=== PATIENT | male | born 1935 | race Caucasian/White ===

== ENCOUNTER 2020-07-14 16:35 | Inpatient (IN) | payer MEDICARE, SELFPAY ==
--- NOTE | 2020-07-14 | CT_ITS ---
EXAMINATION: CT ABDOMEN AND PELVIS WITH CONTRAST CLINICAL INFORMATION: Abdominal pain. Diarrhea. COMPARISON: None TECHNIQUE: Multidetector volumetric images were obtained from the superior aspect of the liver through the pubic symphysis following administration 85 mL of Omnipaque 350 intravenous contrast. Sagittal and coronal reformatted images were obtained on the technologist's workstation. Oral contrast: No This CT examination was performed using dose optimization techniques as appropriate, variously including the following: *Automated exposure control *Adjustment of mA and/or kV according to patient size (this includes techniques or standardized protocols for targeted exams where dose is matched to indication/reason for exam; i.e. extremities or head) *Use of iterative reconstruction technique DLP: 544 mGy-cm FINDINGS: LUNG BASES: There is atelectasis at both lung bases. There is no pleural effusion. There are calcifications of coronary arteries. There are calcifications of the aorta. LIVER, GALLBLADDER, AND BILIARY TREE: Liver is enlarged nodular and heterogeneous suggesting cirrhosis. There is dilatation of the right biliary radicles. These appear to be splayed around a mass in the central right liver measuring 10 cm it is isointense. MRI of the abdomen without and with contrast would be helpful for further assessment. The gallbladder is contracted. No calcified stone is seen in the gallbladder. PANCREAS: The pancreas is atrophic. SPLEEN: Unremarkable. Spleen measures 11 cm of length. ADRENAL GLANDS: Unremarkable. KIDNEYS AND URETERS: There are multiple bilateral renal cysts. Largest is an exophytic cyst at the midpole the right kidney measuring 4.5 cm. There is no renal or ureteral calculus. There is no hydronephrosis. BLADDER: Unremarkable. GASTROINTESTINAL TRACT: There is no acute abnormality. There is no bowel wall thickening /edema. There is no bowel obstruction. There is a moderate volume of stool in the colon. The appendix is normal . The small bowel loops are unremarkable. The stomach is normal. There is small hiatal hernia. MESENTERY: Large volume of abdominal ascites. No evidence of omental thickening or mesenteric mass. ABDOMINAL WALL: Small bilateral inguinal hernias. There is ascites in both of these inguinal hernias. There is no ventral wall hernia. LYMPH NODES: Normal. VASCULAR: There are vascular calcifications of the abdominal aorta and iliac arteries and of the splenic artery. There is no aneurysm of aorta. PELVIC VISCERA: Unremarkable. OSSEOUS STRUCTURES: Unremarkable. IMPRESSION: 1. Cirrhosis of liver. Suspect large mass in the central portion of the liver. Dynamic MRI imaging recommended for follow-up. 2. Large volume of abdominal ascites.
[2020-07-14 18:41] VITALS: BP 112/61; PULSE 94; RESP 18; TEMP 36.5; O2SAT 97; BMI 23.6
--- NOTE | 2020-07-14 18:59 | ED_ITS ---
HPI - Abdominal Pain General Chief Complaint: Abdominal Pain Stated Complaint: diarrhea Time Seen by Provider: 07/14/20 18:43 History of Present Illness HPI narrative: Patient is a 85-year-old male presents today with having abdominal pain, diarrhea. The diarrhea is brown in color. Patient denies noticing any blood. The pain is crampy diffuse nonspecific. Patient denies any radiation. No specific trigger. The symptom has been ongoing for about a week. No vomiting. No nausea. No chest pain or shortness of breath no diaphoresis. Patient claims he had had previous abdominal surgery as a young adult. Unsure is the specific type of surgery. No coughing or congestion or upper respiratory symptoms. No diaphoresis. No travel. No leg swelling. No flank pain. No history of the same. No recent antibiotics. No recent camping MD elicited complaint: abdominal pain Onset (ago): day(s) Pain Consistency: constant Location: diffuse Quality: cramping Migration to: no migration Relieving factors: nothing Related Data Allergies Allergy/AdvReac Type Severity Reaction Status Date / Time No Known Allergies Allergy Unverified 06/30/20 15:01 Review of Systems Review of Systems Yes all other systems are reviewed and are negative Eyes: Reports as per HPI Reports system reviewed and no additional complaints, except as documented Cardiovascular: Reports as per HPI and Reports no additional cardiovascular complaints Respiratory: Reports as per HPI, Reports no additional respiratory complaints and Reports no additional respiratory complaints Gastrointestinal: Reports as per HPI and Reports no additional gastrointestinal complaints Genitourinary: Reports no additional male genitourinary complaints Musculoskeletal: Reports no additional musculoskeletal complaints Skin/Breast: Reports system reviewed and no additional complaints, except as docu Reports system reviewed and no additional complaints, except as documented Psychiatric: Reports no additional psychiatric complaints Endocrine: Reports no additional endocrine complaints Physical Exam Vital Signs and I&O and Narrative: Vital Signs and I&O: Vital Signs Temp 97.9 F 07/14/20 19:42 Pulse 96 07/15/20 00:37 Resp 16 07/15/20 00:37 BP 141/69 H 07/15/20 00:37 Pulse Ox 96 07/15/20 00:37 Intake & Output 07/14/20 07/14/20 07/15/20 06:59 18:59 06:59 Intake Total 1000 / 1000 Balance 1000 / 1000 Weight 72.575 kg Intake: Intake, IV Amoun t 1000 / 1000 0.9 % Sodium C hloride 1,000 ml 1000 / 1000 @ 999 mls/hr I VCONT .Q1H1M [facility] Rx#:[id number] Body Mass Index 23.6 Const: General: cooperative Orientation/consciousness: oriented to person HENMT: Head: Yes normal to inspection General nose exam: Normal external nose present Face and sinus: Yes normal facial exam Eyes: General: appearance normal, both eyes and all related structures Neck: Other: no JVD trachea is midline. Neck: Yes normal visual inspection Chest: Chest palpation & inspection: normal inspection of the chest Resp: Effort & Inspection: normal respiratory effort Auscultation: clear to auscultation bilaterally Cardio: Jugular venous distension: no JVD Rate: regular rate Rhythm: regular rhythm GI: Inspection: Yes normal to inspection Palpation (GI): Soft to palpation, nontender, no guarding and not rigid Percussion: Yes normal to percussion Auscultation: normal bowel sounds : General: Yes no CVA tenderness Back/Spine/Pelvis: Back: no CVA tenderness Skin: General skin exam: no rashes or lesions noted Neuro: General: oriented to person Extrem: General: Yes normal to inspection Psych: Appearance: grossly normal Procedures Paracentesis Time Out Performed: Yes Indication: possible spontaneous bacterial peritonitis Procedure: therapeutic paracentesis Location: LLQ Bedside Ultrasound Used: no Preparation: sterile prep and drape Amount of fluid obtained (mL): 3,500 Fluid: bloody Post Procedure Exam: awake, alert and normal BP Patient Tolerated Procedure: well Complications: none MDM - Abdominal Pain MDM Narrative Medical decision making narrative: Patient's CT scan of the abdomen showed large amount of ascites. In addition there is a mass in the liver. Consistent with malignancy. Patient's LFTs all elevated. Discussed with patient wants workup to be done at the hospital. Case discussed with hospitalist service for admission. Paracentesis performed over 3.5 L of bloody fluid was drained. Symptomatic Iram patient feels improved. no complications. Patient's ascites fluid is being sent for analysis. Differential Diagnosis Differential diagnosis: Likely abdominal pain, aortic dissection, acute appendicitis, bowel perforation and calculus of kidney Lab Data Result diagrams: 07/14/20 19:47 07/14/20 19:47 Labs: Lab Results 07/14/20 07/14/20 07/14/20 Range/Units 19:47 19:47 19:47 WBC 8.7 (4.8-10.8) X10*3/uL RBC 4.33 L (4.60-5.80) X10*6/uL Hgb 12.4 L (14.0-18.0) g/dl Hct 37.8 L (42-52) % MCV 87.3 (80-98) fL MCH 28.6 (27.0-33.0) pg MCHC 32.8 (31.0-36.0) g/dl RDW 19.2 H (11.0-16.0) % Plt Count 404 H (160-400) X10*3/uL MPV 9.8 (9.4-12.4) fL Immature Gran % (Auto) 0.5 H (0.0-0.4) % Neut % (Auto) 78.6 H (45-73) % Lymph % (Auto) 11.1 L (20-40) % [place] % (Auto) 9.0 (2-11) % Eos % (Auto) 0.0 (0-4) % Baso % (Auto) 0.8 (0-2) % Neut # (Auto) 6.9 (2.0-8.3) X10*3/uL Lymph # (Auto) 1.0 L (1.2-4.9) X10*3/uL [place] # (Auto) 0.8 (0.1-1.2) X10*3/uL Eos # (Auto) 0.0 (0.0-0.4) X10*3/uL Baso # (Auto) 0.1 (0.0-0.2) X10*3/uL Abs Immat Gran (auto) 0.04 H (0.00-0.03) X10*3/uL Absolute Nucleated RBC 0.000 (0.0-0.012) X10*3/uL Nucleated RBC % (auto) 0.0 (0.0-0.2) /100WBC Hold Blue Top SEE NOTE Sodium 138 (135-145) mmol/L Potassium 4.9 (3.3-5.1) mmol/l Chloride 104 (96-108) mmol/L Carbon Dioxide 23 (22-29) mmol/L Anion Gap 16 (12-20) BUN 33 H (9-16) mg/dL Creatinine 1.42 H (0.5-1.4) mg/dL Estim Creat Clear Calc 39.4 Estimated GFR 48 Random Glucose 148 H (60-115) mg/dL Calcium 9.4 (8.4-10.2) mg/dL Total Bilirubin 2.6 H (0.0-1.0) mg/dL AST 152 H (5-37) U/L ALT 129 H (0-40) U/L Alkaline Phosphatase 786 H (39-117) U/L Total Protein 6.8 (6.5-8.0) g/dL Albumin 3.4 L (3.5-5.0) g/dL Urine Color Urine Appearance Urine pH (5.0-8.0) Ur Specific [place] (1.005-1.025) Urine Protein (NEG-TRACE) MG/DL Urine Glucose (UA) (NEG) MG/DL Urine Ketones (NEG) MG/DL Urine Blood (NEG) Urine Nitrite (NEG) Ur Leukocyte Esterase (NEG) 07/14/20 Range/Units 22:09 WBC (4.8-10.8) X10*3/uL RBC (4.60-5.80) X10*6/uL Hgb (14.0-18.0) g/dl Hct (42-52) % MCV (80-98) fL MCH (27.0-33.0) pg MCHC (31.0-36.0) g/dl RDW (11.0-16.0) % Plt Count (160-400) X10*3/uL MPV (9.4-12.4) fL Immature Gran % (Auto) (0.0-0.4) % Neut % (Auto) (45-73) % Lymph % (Auto) (20-40) % [place] % (Auto) (2-11) % Eos % (Auto) (0-4) % Baso % (Auto) (0-2) % Neut # (Auto) (2.0-8.3) X10*3/uL Lymph # (Auto) (1.2-4.9) X10*3/uL [place] # (Auto) (0.1-1.2) X10*3/uL Eos # (Auto) (0.0-0.4) X10*3/uL Baso # (Auto) (0.0-0.2) X10*3/uL Abs Immat Gran (auto) (0.00-0.03) X10*3/uL Absolute Nucleated RBC (0.0-0.012) X10*3/uL Nucleated RBC % (auto) (0.0-0.2) /100WBC Hold Blue Top Sodium (135-145) mmol/L Potassium (3.3-5.1) mmol/l Chloride (96-108) mmol/L Carbon Dioxide (22-29) mmol/L Anion Gap (12-20) BUN (9-16) mg/dL Creatinine (0.5-1.4) mg/dL Estim Creat Clear Calc Estimated GFR Random Glucose (60-115) mg/dL Calcium (8.4-10.2) mg/dL Total Bilirubin (0.0-1.0) mg/dL AST (5-37) U/L ALT (0-40) U/L Alkaline Phosphatase (39-117) U/L Total Protein (6.5-8.0) g/dL Albumin (3.5-5.0) g/dL Urine Color YELLOW Urine Appearance CLEAR Urine pH 5.0 (5.0-8.0) Ur Specific [place] 1.015 (1.005-1.025) Urine Protein NEG (NEG-TRACE) MG/DL Urine Glucose (UA) NEG (NEG) MG/DL Urine Ketones NEG (NEG) MG/DL Urine Blood NEG (NEG) Urine Nitrite NEG (NEG) Ur Leukocyte Esterase NEG (NEG) Discharge Plan Discharge Clinical Impression: Ascites Patient Disposition: Admitted As Inpatient [facility] Past Medical History Medical History Arthritis Cataract Diabetes HTN (hypertension) Hypercholesteremia Surgical History H/O hernia repair Social History Social History Alcohol intake: former Smoking Status: Never smoker Use of substances other than those prescribed or required for medical reasons: No Advance Directives: No Advance Directives Information Provided: Yes
[2020-07-14 19:42] VITALS: BP 142/60; PULSE 70; RESP 16; TEMP 36.6; O2SAT 99
[2020-07-14] MEDS: 0.9 % Sodium Chloride 1,000 ML 999 ML IVCONT (19:43)
[2020-07-14 19:52] LABS: MANUAL DIFF FLAG NO
[2020-07-14 19:55] LABS: Basophils Absolute Auto 0.1 X10*3/uL (0.0-0.2); Basophils Percent Auto 0.8 % (0-2); Hematocrit 37.8 % (42-52); Hemoglobin 12.4 g/dl (14.0-18.0); Imm Gran Abs Auto 0.04 X10*3/uL (0.00-0.03); Imm Gran Pct Auto 0.5 % (0.0-0.4); Lymphocytes Percent Auto 11.1 % (20-40); Mean Corpuscular HGB Conc 32.8 g/dl (31.0-36.0); Mean Corpuscular Hemoglobin 28.6 pg (27.0-33.0); Mean Corpuscular Volume 87.3 fL (80-98); Mean Platelet Volume 9.8 fL (9.4-12.4); Monocytes Absolute Auto 0.8 X10*3/uL (0.1-1.2); Neutrophils Absolute Auto 6.9 X10*3/uL (2.0-8.3); Neutrophils Percent Auto 78.6 % (45-73); Platelet Count 404 X10*3/uL (160-400); Red Blood Count 4.33 X10*6/uL (4.60-5.80); Red Cell Distribution Width 19.2 % (11.0-16.0); White Blood Count 8.7 X10*3/uL (4.8-10.8)
[2020-07-14] MEDS: ondansetron HCL 4 MG/2 ML VIAL IVPUSH (20:26)
[2020-07-14 20:27] LABS: Alanine Aminotransferase 129 U/L (0-40); Albumin Level 3.4 g/dL (3.5-5.0); Alkaline Phosphatase 786 U/L (39-117); Anion Gap 16 (12-20); Aspartate Amino Transferase 152 U/L (5-37); Bilirubin Total 2.6 mg/dL (0.0-1.0); Blood Urea Nitrogen 33 mg/dL (9-16); Calcium 9.4 mg/dL (8.4-10.2); Carbon Dioxide 23 mmol/L (22-29); Chloride 104 mmol/L (96-108); Creatinine Clr Calc Pharmacy 39.4; Estimated Glomerular Filt Rate 48; Glucose Random 148 mg/dL (60-115); Potassium 4.9 mmol/l (3.3-5.1); Sodium 138 mmol/L (135-145); Total Protein 6.8 g/dL (6.5-8.0)
[2020-07-14 20:29] VITALS: PULSE 70; O2SAT 96
[2020-07-14] MEDS: iohexoL 350 MG/ML 100 ML INFUS..BTL IV (21:16)
[2020-07-14 22:28] LABS: Glucose Urine UA NEG (NEG); Leukocyte Esterase Urine NEG (NEG); Nitrite Urine NEG (NEG); Specific Gravity - Urine 1.015 (1.005-1.025); Urine Blood NEG (NEG); Urine Ketones NEG (NEG); Urine Protein NEG (NEG-TRACE)
[2020-07-14 22:30] LABS: Appearance Urine CLEAR; Color Urine YELLOW
[2020-07-15] VITALS (13 sets, daily range): BP systolic 98–143; BP diastolic 39–79; PULSE 74–111; RESP 16–20; TEMP 36.3–36.8; O2SAT 94–98; BMI 49.4
--- NOTE | 2020-07-15 | MR_ITS ---
EXAMINATION: MR ABDOMEN WITHOUT AND WITH CONTRAST CLINICAL INFORMATION: HCC. COMPARISON: CT scan of the abdomen and pelvis dated 07/14/2020. TECHNIQUE: MR abdomen was performed without and with use of 7 mL intravenous Gadavist gadolinium contrast. Postcontrast images are performed in multiphase dynamic sequences. Imaging was performed in 3 planes. FINDINGS: Evaluation is limited due to extensive motion artifact. LIVER: Liver measures 17.4 cm longitudinally and demonstrates a lobulated nodular contour, consistent with liver cirrhosis. As seen on the CT scan, there is a large mass seen completely replacing segment 8 and extending into segment 5, measuring 10.6 x 9.5 x 11.6 cm in size and appearing heterogeneously isointense on T1-weighted and T2-weighted sequences with a T1 dark and T2 bright rim (series 3, image 17; series 6, image 13). Postcontrast, there is low level heterogeneous arterial phase predominantly peripheral enhancement of this mass with several central nodular areas of hypo-/nonenhancement. Some of the arterial phase enhancing regions demonstrate washout on delayed sequences, though evaluation overall is extremely limited due to extensive artifact. There is delayed noncentral rim enhancement of the entire mass. This mass splays the right and middle hepatic veins, which are attenuated and also causes extensive mass effect on the right portal vein. Evaluation of the right portal vein is limited due to extensive motion artifact. The right portal vein may be markedly attenuated due to extensive mass effect versus occluded (bland versus tumor thrombus). There is an additional subtle mass in hepatic segment 2, measuring 4.8 x 2.7 cm (series 8, image 54) with identical imaging characteristics as the large mass described above. There is adjacent third 0.8 cm mass in hepatic segment 2 (series 6, image 14), also demonstrating identical imaging characteristics. Liver parenchyma is heterogeneous in signal. There is large volume ascites in the abdomen and extending into the pelvis. GALLBLADDER, BILIARY TREE: Gallbladder is only partially distended. There is diffuse thickening and enhancement of the gallbladder wall, a nonspecific finding in the setting of liver disease. No definite filling defects within the gallbladder are noted to suspect gallstones. There is mild intrahepatic dilatation in the right lobe of the liver due to mass effect upon the right hepatic duct by the large central liver mass. There is also minimal intrahepatic ductal dilatation in hepatic segment 2 distal to the dominant segment 2 mass described above. Common bile duct is poorly visualized but does not appear to be dilated, measuring 0.6 cm in the pancreatic head. PANCREAS: Pancreas is poorly visualized due to adjacent bowel related motion artifact and marked parenchymal atrophy. There are 2 subtle T2 bright masses seen in the pancreas, one in the pancreatic body/tail junction (series 4, image 25), measuring 1.1 x 0.8 cm and the other in the pancreatic tail, measuring 1.6 x 1.4 cm. These masses are poorly characterized postcontrast but the overall sense is that there is no significant enhancement. There is no significant pancreatic ductal dilatation appreciated. SPLEEN: Normal size (9.7 cm long) and appearance. Splenic vein patent. ADRENAL GLANDS AND KIDNEYS: Adrenal glands normal. Kidneys bilaterally symmetric in size and function. No hydronephrosis or perinephric stranding. There are several bilateral T2 bright thin-walled renal masses, largest of which is an exophytic mid right renal 4.7 x 4.3 cm mass. Postcontrast, only some of these masses are included in the [id number] of the exam and show no enhancement and are consistent with cysts. BOWEL LOOPS: The bowel loops are centrally displaced by the large volume ascites and are otherwise unremarkable. LYMPHOVASCULAR STRUCTURES: Abdominal aorta normal in caliber. No periaortic collections. Small periportal varices are seen. No significant abdominal adenopathy. BONES: Within normal limits to the extent included. IMPRESSION: 1. Cirrhotic liver with evidence of portal venous hypertension as evidenced by large volume ascites and small periportal varices. There are 3 superimposed hepatic masses, largest of which is seen nearly completely replacing hepatic segment 8. In the setting of liver cirrhosis, the imaging characteristics of these masses are suspicious, though not entirely diagnostic for hepatocellular carcinoma. Diagnostic confidence is low given the suboptimal scan obtained. 2. There is nonvisualization of the right portal vein, at least in part related to attenuation by extrinsic mass effect by the large central hepatic mass. Thrombosis (bland versus tumor thrombus) of the right portal vein may also be possible. 3. Mild intrahepatic ductal dilatation in the right and left lobes of the liver due to mass effect by the liver masses on the central intrahepatic biliary tree. 4. Poorly characterized cystic masses in the pancreatic body and tail. 5. Multiple renal masses, most consistent with cysts.
--- NOTE | 2020-07-15 01:41 | P.HPIM_ITS ---
History of Present Illness Date of Service: 07/14/20 Chief Complaint: abdominal distension 85-year-old male with past medical history of diabetes and hypertension, presents to the hospital with complaints of swelling in the abdomen. He reports that he has noticed abdominal swelling for about a week now but was not too concerned, 2 days ago his daughter in-law noticed swelling in his abdomen asked him to come to the ED. Patient otherwise denies any headache, change in vision, no change in color of his skin, no abdominal pain, nausea vomiting. he does report approximately 20 lb weight loss but does not tell me in what duration. He reports that his weight loss most likely secondary to his insulin use. He has had some episodes of diarrhea. He has no lower extremity edema. No urinary symptoms. On initial arrival to the ED patient hemodynamically stable with no other abnormal vitals labs are significant for BUN of 33 with a creatinine of 1.42, total bili of 2.6 with a direct bili of 1.8, AST of 152, ALT of 129, alk phos son 186, lipase of [address] imaging of the abdomen and pelvis which showed cirrhosis of the liver, suspect large mass in the central portion of the liver, and large volume of abdominal ascites patient underwent diagnostic and therapeutic paracentesis in the ED and 3.5 L of fluid was drained. Past medical history: diabetes, hypertension, hyperlipidemia, BPH, chronic pain past surgical history: Hernia repair family history: denies social history: Comes from home, lives with his son and [id number], denies current use of alcohol tobacco or illicit drug Review of Systems Review of Systems: Yes all other systems are reviewed and are negative Neurologic: Reports system reviewed and no additional complaints, except as documented [facility] Medical History (Updated 07/15/20 @ 03:58 by Ant Castro MD) Arthritis Cataract Diabetes HTN (hypertension) Hypercholesteremia Surgical History H/O hernia repair Social History Household Members: Family Do you presently have visiting nurse or other home services: No Alcohol intake: former Smoking Status: Never smoker Use of substances other than those prescribed or required for medical reasons: No Have you been hit, kicked, punched, or otherwise hurt by someone within the past year? If so, by whom?: No Do you feel safe in your current relationship?: No Is there a partner from a previous relationship who is making you feel unsafe now?: No Are you made to feel afraid or neglected: No Advance Directives: No Advance Directives Information Provided: Yes Do you have thoughts of harming others: None Recently lost weight without trying: No Meds Allergies Allergy/AdvReac Type Severity Reaction Status Date / Time No Known Allergies Allergy Unverified 06/30/20 15:01 Home Medications Medication Instructions Recorded Confirmed Type amlodipine 1 tab PO DAILY 07/15/20 07/15/20 History atorvastatin 1 tab PO DAILY 07/15/20 07/15/20 History blood sugar diagnostic [Accu-Chek 07/15/20 07/15/20 History Guide test strips] dulaglutide [Trulicity] 0.5 ml SUBCUT QWEEK 07/15/20 07/15/20 History ibuprofen 1 tab PO Q6H PRN 07/15/20 07/15/20 History lancets [Accu-Chek Fastclix Lancet 07/15/20 07/15/20 History Drum] metformin 1 tab PO BID 07/15/20 07/15/20 History oxycodone-acetaminophen 1 - 2 tab PO Q4H PRN 07/15/20 07/15/20 History tamsulosin 1 cap PO BEDTIME 07/15/20 07/15/20 History Physical Exam Vital Signs and Narrative: Vital Signs: Last Vital Signs Temp 98.3 F 07/15/20 01:20 Pulse 103 H 07/15/20 01:20 Resp 16 07/15/20 01:20 BP 98/39 L 07/15/20 01:20 Pulse Ox 97 07/15/20 01:20 Body Mass Index 23.6 Const: General: cooperative and no acute distress Orientation/consciousness: patient oriented x3 Eyes: General: appearance normal, both eyes and all related structures Pupils: Equal, round and reactive pupils present Resp: Effort & Inspection: normal respiratory effort, able to speak in complete sentences and abnormal respiratory pattern Auscultation: clear to auscultation bilaterally Cardio: Rate: regular rate Rhythm: regular rhythm GI: Other: 3+ distension of abdomen, abdomen is hard, has not rebound, guarding, or tenderness Auscultation: normal bowel sounds Skin: General skin exam: no rashes or lesions noted Neuro: General: patient oriented x3 Cranial nerves: Yes Equal, round and reactive pupils present Cognition (Neuro): normal cognition Extrem: General: Yes normal to inspection and Yes no pedal edema Results Labs Labs: Laboratory Tests 07/14/20 07/14/20 07/14/20 19:47 19:47 19:47 WBC 8.7 RBC 4.33 L Hgb 12.4 L Hct 37.8 L MCV 87.3 MCH 28.6 MCHC 32.8 RDW 19.2 H Plt Count 404 H MPV 9.8 Immature Gran % (Auto) 0.5 H Neut % (Auto) 78.6 H Lymph % (Auto) 11.1 L [place] % (Auto) 9.0 Eos % (Auto) 0.0 Baso % (Auto) 0.8 Neut # (Auto) 6.9 Lymph # (Auto) 1.0 L [place] # (Auto) 0.8 Eos # (Auto) 0.0 Baso # (Auto) 0.1 Abs Immat Gran (auto) 0.04 H Absolute Nucleated RBC 0.000 Nucleated RBC % (auto) 0.0 Hold Blue Top SEE NOTE Sodium 138 Potassium 4.9 Chloride 104 Carbon Dioxide 23 Anion Gap 16 BUN 33 H Creatinine 1.42 H Estim Creat Clear Calc 39.4 Estimated GFR 48 Random Glucose 148 H Calcium 9.4 Total Bilirubin 2.6 H AST 152 H ALT 129 H Alkaline Phosphatase 786 H Total Protein 6.8 Albumin 3.4 L Urine Color Urine Appearance Urine pH Ur Specific [place] Urine Protein Urine Glucose (UA) Urine Ketones Urine Blood Urine Nitrite Ur Leukocyte Esterase 07/14/20 22:09 WBC RBC Hgb Hct MCV MCH MCHC RDW Plt Count MPV Immature Gran % (Auto) Neut % (Auto) Lymph % (Auto) [place] % (Auto) Eos % (Auto) Baso % (Auto) Neut # (Auto) Lymph # (Auto) [place] # (Auto) Eos # (Auto) Baso # (Auto) Abs Immat Gran (auto) Absolute Nucleated RBC Nucleated RBC % (auto) Hold Blue Top Sodium Potassium Chloride Carbon Dioxide Anion Gap BUN Creatinine Estim Creat Clear Calc Estimated GFR Random Glucose Calcium Total Bilirubin AST ALT Alkaline Phosphatase Total Protein Albumin Urine Color YELLOW Urine Appearance CLEAR Urine pH 5.0 Ur Specific [place] 1.015 Urine Protein NEG Urine Glucose (UA) NEG Urine Ketones NEG Urine Blood NEG Urine Nitrite NEG Ur Leukocyte Esterase NEG ECG Attestation: I personally reviewed and interpreted this ECG as follows: Assessment and Plan (1) Ascites: Status: Acute most likely secondary to liver cirrhosis patient reports heavy alcohol use about 20 years ago but has not drank much since, he has significant abdominal ascites, 3.5 L of fluid was drained in the ED, patient has no significant abdominal pain, CT abdomen showing ascites and concern for liver mass plan: - may need regular therapeutic paracentesis on discharge - will follow cytology and cell count (2) Liver mass: Status: Acute concerning for cancer patient has a history of hep C that he is aware of, although does report history of of heavy alcohol use more than 20 years ago will obtain CEA, CA 19-9, AFP, hepatitis AB and C pen will consult GI consult Hematology-Oncology for further workup (3) Liver cirrhosis: Status: Acute unclear etiology alcohol versus viral hepatitis versus due to fatty liver disease although patient unaware workup as above including hepatitis panel, AFP, CA 19 9, CEA GI consult (4) Acute kidney injury superimposed on CKD: Status: Acute unclear baseline has elevated BUN and creatinine patient denies any poor appetite or low p.o. in plan: - IV fluid - urine studies - will follow BMP (5) Hypercholesteremia: Status: Acute continues status (6) HTN (hypertension): Status: Acute stable contnue alodipine (7) Diabetes: Status: Acute will hold this form start low-dose sliding scale insulin diabetic diet
[2020-07-15 02:08] LABS: Glucose, Whole Blood 126 mg/dL (60-115)
[2020-07-15 02:13] LABS: INTERNATIONAL NORM RATIO 1.1 (0.9-1.1); Prothrombin Time 13.4 SEC (10.8-13.0)
--- NOTE | 2020-07-15 02:24 | PC.NURSE ---
3.5 L body fluids out from paracentesis by Dr. Howard, and sent it the lab for analysis. pt tolerated procedere well.
[2020-07-15 02:56] LABS: Bilirubin Direct 1.8 mg/dL (0.0-0.5); Lipase 16 U/L (8-78)
[2020-07-15] MEDS: 0.9 % Sodium Chloride 1,000 ML 100 ML IVCONT (03:16)
[2020-07-15] MEDS: 0.9 % Sodium Chloride Flush 3 ML SYRINGE 2 ML IVFLUSH ×4 (03:40→21:29)
[2020-07-15] MEDS: Enoxaparin Sodium 40 MG/0.4 ML SYRINGE SUBCUT (03:51)
[2020-07-15 08:15] LABS: Glucose, Whole Blood 175 mg/dL (60-115)
[2020-07-15] MEDS: Insulin Lispro 100 UNIT/ML 3 ML VIAL SUBCUT ×3 (08:37→21:26)
[2020-07-15] MEDS: Atorvastatin Calcium 20 MG TABLET PO (08:41)
[2020-07-15] MEDS: amLODIPine Besylate 5 MG TABLET PO (08:41)
[2020-07-15 08:42] LABS: MN% 55.2 %; PMN% 44.8 %; RBC Peritoneal Fluid 0.266 X10*6/uL; WBC Peritoneal Fluid 0.517 X10*3/uL
[2020-07-15 09:35] LABS: ~Hepatitis C Antibody Nonreactive (Nonreactive)
[2020-07-15 11:16] LABS: BF Shift QC OK YES; Lymphocyte Peritoneal Fl 21 %; Monocytes Peritoneal Fl 13 %; Neutrophils Peritoneal Fluid 64 %; Other Peritioneal Fl 2 %
[2020-07-15 11:17] LABS: HBS Num1 0.62 mIU/mL (0-7.99); HBc Num1 0.18 S/CO (0.00-0.79); HBsAGNum1 0.14 S/CO (0.00-0.99); Hepatitis B Core Antibody Nonreactive (Nonreactive); Hepatitis B Surface Antigen Negative (Negative); ~Hepatitis B Surface Antibody NONREACTIVE (Nonreactive)
[2020-07-15 12:10] LABS: Glucose, Whole Blood 201 mg/dL (60-115)
--- NOTE | 2020-07-15 12:59 | PM.HEMONCCN ---
Subjective - Subjective Chief complaint: DISTENSION OF ABDOMEN. ASCITES. LIVER MASS. Patient: new to practice Consult date: 07/15/20 Primary Care Provider: Nonstaff Physician HPI - Consult Narrative Narrative: This is a pleasant 85-year-old gentleman who presented to the hospital yesterday with abdominal distension. this started about a week ago. He denies any abdominal pain, nausea vomiting heartburn or indigestion. He did admit to having had diarrhea off and on. His appetite has not been that good. He has lost weight about 20 lb in all. He was noted to have an elevated LFTs: Bili 2.6, AP 186 /AST 152/ALT 129. 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 He had a CT scan of the abdomen which revealed: A large mass, 10 cm in the central liver, ascites and cirrhosis. He had 3.5 L of fluid drained from the abdomen. He is feeling more comfortable now. Review of Systems - Constitutional Reports fatigue - ENT Reports system reviewed and no additional complaints, except as documented - Gastrointestinal Reports bloating, Reports change in bowel habits, Reports change in stools, Reports feeling full early, Reports diarrhea - Neurologic Reports system reviewed and no additional complaints, except as documented PMFSH Medical History: Medical History (Last Reviewed 07/19/20 @ 15:26 by Marie Lugo MD) Arthritis Cataract Diabetes HTN (hypertension) Hypercholesteremia Liver mass Patient : No Surgical History: Surgical History (Last Reviewed 07/15/20 @ 03:51 by Ant Castro MD) H/O hernia repair Smoking status: Never smoker Home Medications and Allergies Current Medications: Current Medications Generic Name Dose Route Start Last Admin Trade Name Freq PRN Reason Stop Dose Admin Acetaminophen 650 mg 07/15/20 02:39 Acetaminophen 650 Mg Supp.Rect [place] Q6H PRN Pain, Mild (Pain Scale 1-3) Amlodipine Besylate 5 mg 07/15/20 09:00 07/15/20 08:41 Amlodipine Besylate 5 Mg Tablet PO 5 mg DAILY NICKY Administration Protocol Atorvastatin Calcium 20 mg 07/15/20 09:00 07/15/20 08:41 Atorvastatin Calcium 20 Mg Tablet PO 20 mg DAILY NICKY Administration Enoxaparin Sodium 40 mg 07/15/20 03:00 07/15/20 03:51 Enoxaparin Sodium 40 Mg/0.4 Ml Syringe SUBCUT 40 mg Q24H NICKY Administration Ibuprofen 600 mg 07/15/20 02:39 Ibuprofen 600 Mg Tablet PO Q6H PRN pain Insulin Human Lispro 0 unit 07/15/20 07:30 07/15/20 12:08 Insulin Lispro 100 Unit/Ml 3 Ml Vial SUBCUT 4 unit QIDACHS [facility] Administration Protocol Levofloxacin 500 mg 07/15/20 12:45 Levofloxacin 500 Mg Tablet PO Q24H [facility] Magnesium Hydroxide 30 ml 07/15/20 02:39 Milk Of Magnesia 30 Ml Oral.Susp PO DAILY PRN Constipation Ondansetron HCl 4 mg 07/15/20 02:39 Ondansetron Hcl 4 Mg/2 Ml Vial IVPUSH Q8H PRN Nausea and Vomiting Sodium Chloride 2 ml 07/15/20 02:39 07/15/20 08:39 0.9 % Sodium Chloride Flush 3 Ml Syringe IVFLUSH 2 ml QSHIFT [facility] Administration Tamsulosin HCl 0.4 mg 07/16/20 21:00 Tamsulosin Hcl 0.4 Mg Capsule PO BEDTIME [facility] Home Medications Medication Instructions Recorded Confirmed Type Accu-Chek Guide test strips 07/15/20 07/15/20 History Trulicity 0.5 ml SUBCUT QWEEK 07/15/20 07/15/20 History amlodipine 1 tab PO DAILY 07/15/20 07/15/20 History atorvastatin 1 tab PO DAILY 07/15/20 07/15/20 History lancets [Accu-Chek Fastclix Lancet 07/15/20 07/15/20 History Drum] metformin 1 tab PO BID 07/15/20 07/15/20 History oxycodone-acetaminophen 1 - 2 tab PO Q4H PRN 07/15/20 07/15/20 History tamsulosin 1 cap PO BEDTIME 07/15/20 07/15/20 History Allergies Allergy/AdvReac Type Severity Reaction Status Date / Time No Known Allergies Allergy Unverified 06/30/20 15:01 Physical Exam Vital signs: Vital Signs Temp 97.7 F 07/15/20 12:02 Pulse 74 07/15/20 12:02 Resp 19 07/15/20 12:02 BP 116/61 07/15/20 12:02 Pulse Ox 95 07/15/20 12:02 Intake & Output 07/14/20 07/15/20 07/15/20 18:59 06:59 18:59 Intake Total 1000 / 1000 721.667 / 721.667 Output Total Balance 999 / 999 721.667 / 721.667 Urine Output (Average ml/kg/hr) 0.00 0.00 Intake: Intake, IV Amount 1000 / 1000 721.667 / 721.667 0.9 % Sodium Chloride 1,000 ml 1000 / 1000 721.667 / 721.667 @ 100 mls/hr IVCONT .Q10H [facility] Rx#:[id number] Output: Output, Urine Amount Other: Urine Bathroom Urine Color Yellow Stool Bathroom Stool Color Brown Stool Consistency Liquid Weight 72.575 kg 152 kg Weight 152 kg - Constitutional Present: no acute distress - Routine HEENT Exam Head: Present: normal inspection - Routine Neck Exam Present: supple - Routine Cardiovascular Exam Cardiovascular: Present: RRR, S1, S2 - Routine Abdominal Exam Present: diminished bowel sounds, distended, firm, nontender - Routine Skin Exam Present: intact - Routine Psychiatric Exam Present: depressed Hem/Onc Consult Result - Labs CBC & Chem 7: 07/16/20 06:55 07/16/20 06:55 Labs: Short CBC 07/14/20 Range/Units 19:47 WBC 8.7 (4.8-10.8) X10*3/uL Hgb 12.4 L (14.0-18.0) g/dl Hct 37.8 L (42-52) % Plt Count 404 H (160-400) X10*3/uL BMP 07/14/20 19:47 Sodium 138 Potassium 4.9 Chloride 104 Carbon Dioxide 23 BUN 33 H Creatinine 1.42 H Calcium 9.4 Liver Function 07/14/20 Range/Units 19:47 Total Bilirubin 2.6 H (0.0-1.0) mg/dL Direct Bilirubin 1.8 H (0.0-0.5) mg/dL AST 152 H (5-37) U/L ALT 129 H (0-40) U/L Alkaline Phosphatase 786 H (39-117) U/L Albumin 3.4 L (3.5-5.0) g/dL Urine 07/14/20 Range/Units 22:09 Urine Color YELLOW Urine Appearance CLEAR Urine pH 5.0 (5.0-8.0) Ur Specific [place] 1.015 (1.005-1.025) Urine Protein NEG (NEG-TRACE) MG/DL Urine Glucose (UA) NEG (NEG) MG/DL Assessment and Plan (1) Liver mass Status: Acute This is a pleasant 85-year-old gentleman, who presented last evening with abdominal distension. He was noted to have a large liver mass, and ascites. He had a paracentesis done with removal of 3.5 L of fluid in the emergency room. Results from cytology are pending. 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 Differential diagnosis includes: Metastatic cancer from another primary, could be a GI. alpha-fetoprotein is pending. PLAN: I would recommend proceeding with an MRI of the liver with contrast for further delineation. that may give us an answer and confirm if this is HCC, without the need for biopsy. I would also check other tumor markers. Further plan will be made in the light of the above. He may need to be referred to a liver center, for further management. thank you for this consult, cc: Dr. Akira Burks. (2) Liver mass Status: Acute
[2020-07-15] MEDS: levoFLOXacin 500 MG TABLET PO (13:49)
[2020-07-15 16:17] LABS: Creatinine Urine 163.41 mg/dL
[2020-07-15 16:35] LABS: Glucose, Whole Blood 145 mg/dL (60-115)
[2020-07-15 21:39] LABS: Glucose, Whole Blood 179 mg/dL (60-115)
[2020-07-16] VITALS (7 sets, daily range): BP systolic 103–129; BP diastolic 52–69; PULSE 72–94; RESP 18–19; TEMP 36.2–37.1; O2SAT 96–98; BMI 51.1
[2020-07-16] MEDS: Enoxaparin Sodium 40 MG/0.4 ML SYRINGE SUBCUT (02:27)
[2020-07-16 07:08] LABS: MANUAL DIFF FLAG NO
[2020-07-16 07:17] LABS: Basophils Absolute Auto 0.1 X10*3/uL (0.0-0.2); Basophils Percent Auto 0.9 % (0-2); Hematocrit 32.5 % (42-52); Imm Gran Abs Auto 0.02 X10*3/uL (0.00-0.03); Imm Gran Pct Auto 0.3 % (0.0-0.4); Lymphocytes Absolute Auto 0.8 X10*3/uL (1.2-4.9); Lymphocytes Percent Auto 12.2 % (20-40); Mean Corpuscular HGB Conc 33.8 g/dl (31.0-36.0); Mean Corpuscular Hemoglobin 28.7 pg (27.0-33.0); Mean Corpuscular Volume 84.9 fL (80-98); Monocytes Absolute Auto 0.8 X10*3/uL (0.1-1.2); Monocytes Percent Auto 12.5 % (2-11); Neutrophils Absolute Auto 4.7 X10*3/uL (2.0-8.3); Neutrophils Percent Auto 74.1 % (45-73); Platelet Count 296 X10*3/uL (160-400); Red Blood Count 3.83 X10*6/uL (4.60-5.80); Red Cell Distribution Width 18.6 % (11.0-16.0); White Blood Count 6.3 X10*3/uL (4.8-10.8)
[2020-07-16 08:07] LABS: Anion Gap 12 (12-20); Blood Urea Nitrogen 28 mg/dL (9-16); Carbon Dioxide 21 mmol/L (22-29); Chloride 106 mmol/L (96-108); Creatinine Clr Calc Pharmacy 79.3; Estimated Glomerular Filt Rate > 60; Glucose Fasting 109 mg/dL (60-99); Sodium 135 mmol/L (135-145)
[2020-07-16 08:08] LABS: Anion Gap 13 (12-20); Blood Urea Nitrogen 28 mg/dL (9-16); Carbon Dioxide 21 mmol/L (22-29); Chloride 106 mmol/L (96-108); Creatinine Clr Calc Pharmacy 77.8; Estimated Glomerular Filt Rate > 60; Glucose Random 109 mg/dL (60-115); Sodium 136 mmol/L (135-145)
[2020-07-16 08:11] LABS: Glucose, Whole Blood 105 mg/dL (60-115)
[2020-07-16] MEDS: 0.9 % Sodium Chloride Flush 3 ML SYRINGE 2 ML IVFLUSH (08:14)
[2020-07-16] MEDS: Atorvastatin Calcium 20 MG TABLET PO (08:14)
[2020-07-16] MEDS: amLODIPine Besylate 5 MG TABLET PO (08:14)
[2020-07-16 08:17] LABS: Calcium 8.1 mg/dL (8.4-10.2)
--- NOTE | 2020-07-16 10:01 | P.DS_ITS ---
DS: Providers Provider Date of admission: 07/15/20 00:37 Primary care physician: Nonstaff Physician Consults: 07/15/20 02:39 Consult to Hematology / Oncology Routine Consulting Provider: Marie Lugo Reason for consultation: liver mass. Has provider been notified: No Consult to Physician Routine Consulting Provider: Lloyd Burks Reason for consultation: lives cirrhosis, ascietes, mass Has provider been notified: No DS: Diagnosis Discharge Diagnosis (1) Liver mass: Status: Acute DS: Summary Hospital Course Hospital Course: patient was admitted for symptomatic ascites. There was no known history of liver cirrhosis prior to this. Imaging revealed liver cirrhosis with large hepatic mass. Paracentesis showed PMNs greater than 250, g stain and culture were negative. Patient was started on Levaquin and will continue as outpatient, duration ultimately due to be decided by GI. Viral hepatitis screen was negative, most likely underlying causes was AMAYA. For his hepatic mass he was seen by oncology recommended MRI which was suspicious for hepatocellular carcinoma although not entirely diagnostic. Alpha fetoprotein is pending. Patient is feeling better will be discharged home. He will follow-up with O ncology and GI as outpatient Time Spent with Patient Time attestation: Total time spent providing and/or coordinating discharge services: Physical Exam Vital Signs and I&O and Narrative: Vital Signs and I&O: Vital Signs Temp 97.1 F 07/16/20 08:18 Pulse 94 07/16/20 08:18 Resp 19 07/16/20 08:18 BP 117/59 L 07/16/20 08:18 Pulse Ox 97 07/16/20 08:18 Intake & Output 07/15/20 07/16/20 07/16/20 18:59 06:59 18:59 Intake Total 961.667 / 1141.667 180 / 1141.667 Output Total Balance 961.667 / 1130.667 169 / 1130.667 Urine Output (Aver age ml/kg/hr) 0.01 Weight 152 kg 157 kg Intake: Intake, Oral [place] unt 240 / 420 180 / 420 Intake, IV Amoun t 721.667 / 721.667 0.9 % Sodium C hloride 1,000 ml 721.667 / 721.667 @ 100 mls/hr I VCONT .Q10H NICKY Rx#:[id number] Output: Output, Urine Am ount Other: Meal Refused No No Breakfast % Eate n 100% Lunch % Eaten 100% Dinner % Eaten 100% Number of Incont inent Voids 5 Number of Unmeas ured Voids 3 Stool Bathroom Stool Color Brown Stool Consistenc y Liquid Body Mass Index 51.1 HENMT: Other: hard of hearing Resp: Auscultation: clear to auscultation bilaterally Cardio: Heart sounds: S1 normal heart sound present and S2 normal heart sound present GI: Other: distended but soft, nontender DS: Data Data Completed and Pending Pending studies at discharge: Pending at discharge 07/15/20 09:33 Cytology [PTH] Routine Labs on day of discharge: Labs from last 24 hours 07/16/20 07/16/20 07/16/20 08:06 06:55 06:55 WBC 6.3 RBC 3.83 L Hgb 11.0 L Hct 32.5 L MCV 84.9 MCH 28.7 MCHC 33.8 RDW 18.6 H Plt Count 296 D MPV 10.0 Immature Gran % (Auto) 0.3 Neut % (Auto) 74.1 H Lymph % (Auto) 12.2 L [place] % (Auto) 12.5 H Eos % (Auto) 0.0 Baso % (Auto) 0.9 Neut # (Auto) 4.7 Lymph # (Auto) 0.8 L [place] # (Auto) 0.8 Eos # (Auto) 0.0 Baso # (Auto) 0.1 Abs Immat Gran (auto) 0.02 Absolute Nucleated RBC 0.000 Nucleated RBC % (auto) 0.0 Sodium 135 Potassium 4.0 Chloride 106 Carbon Dioxide 21 L Anion Gap 12 BUN 28 H Creatinine 1.05 Estim Creat Clear Calc 79.3 Estimated GFR > 60 POC Glucose 105 Random Glucose Fasting Glucose 109 H Calcium 8.1 L Ur Random Sodium Urine Creatinine Peritoneal WBC Peritoneal RBC Periton Neutrophils Periton Lymphocytes Peritoneal Monocytes Peritoneal Other Cells Peritoneal Albumin Hep Bs Antigen Hep Bs Antibody Hep B Core Total Ab Hepatitis C Ab (EIA) 07/16/20 07/15/20 07/15/20 06:55 21:20 16:17 WBC RBC Hgb Hct MCV MCH MCHC RDW Plt Count MPV Immature Gran % (Auto) Neut % (Auto) Lymph % (Auto) [place] % (Auto) Eos % (Auto) Baso % (Auto) Neut # (Auto) Lymph # (Auto) [place] # (Auto) Eos # (Auto) Baso # (Auto) Abs Immat Gran (auto) Absolute Nucleated RBC Nucleated RBC % (auto) Sodium 136 Potassium 4.0 Chloride 106 Carbon Dioxide 21 L Anion Gap 13 BUN 28 H Creatinine 1.07 Estim Creat Clear Calc 77.8 Estimated GFR > 60 POC Glucose 179 H 145 H Random Glucose 109 Fasting Glucose Calcium 8.0 L Ur Random Sodium Urine Creatinine Peritoneal WBC Peritoneal RBC Periton Neutrophils Periton Lymphocytes Peritoneal Monocytes Peritoneal Other Cells Peritoneal Albumin Hep Bs Antigen Hep Bs Antibody Hep B Core Total Ab Hepatitis C Ab (EIA) 07/15/20 07/15/20 07/15/20 15:35 11:59 03:16 WBC RBC Hgb Hct MCV MCH MCHC RDW Plt Count MPV Immature Gran % (Auto) Neut % (Auto) Lymph % (Auto) [place] % (Auto) Eos % (Auto) Baso % (Auto) Neut # (Auto) Lymph # (Auto) [place] # (Auto) Eos # (Auto) Baso # (Auto) Abs Immat Gran (auto) Absolute Nucleated RBC Nucleated RBC % (auto) Sodium Potassium Chloride Carbon Dioxide Anion Gap BUN Creatinine Estim Creat Clear Calc Estimated GFR POC Glucose 201 H Random Glucose Fasting Glucose Calcium Ur Random Sodium 27.0 Urine Creatinine 163.41 Peritoneal WBC Peritoneal RBC Periton Neutrophils Periton Lymphocytes Peritoneal Monocytes Peritoneal Other Cells Peritoneal Albumin Hep Bs Antigen Negative Hep Bs Antibody NONREACTIVE Hep B Core Total Ab Nonreactive Hepatitis C Ab (EIA) Nonreactive 07/15/20 07/15/20 02:11 02:11 WBC RBC Hgb Hct MCV MCH MCHC RDW Plt Count MPV Immature Gran % (Auto) Neut % (Auto) Lymph % (Auto) [place] % (Auto) Eos % (Auto) Baso % (Auto) Neut # (Auto) Lymph # (Auto) [place] # (Auto) Eos # (Auto) Baso # (Auto) Abs Immat Gran (auto) Absolute Nucleated RBC Nucleated RBC % (auto) Sodium Potassium Chloride Carbon Dioxide Anion Gap BUN Creatinine Estim Creat Clear Calc Estimated GFR POC Glucose Random Glucose Fasting Glucose Calcium Ur Random Sodium Urine Creatinine Peritoneal WBC 0.517 Peritoneal RBC 0.266 Periton Neutrophils 64 Periton Lymphocytes 21 Peritoneal Monocytes 13 Peritoneal Other Cells 2 Peritoneal Albumin 1.2 GM/DL Hep Bs Antigen Hep Bs Antibody Hep B Core Total Ab Hepatitis C Ab (EIA) Discharge Plan Discharge Patient Disposition: Home, Self-Care Referrals: Physician,Nonstaff [Primary Care Provider] - Marie Lugo MD [Physician] - 1 Week (hcc) Lloyd Burks [Physician] - 1 Week (liver cirrhosis (suspected AMAYA) with HCC, ascitic fluid with PMN>250, culture and gram stain negative) Discharge Medications: New levofloxacin 500 mg Tablet 500 mg PO Q24H Qty: 5 RF: 0 Continued atorvastatin 20 mg tablet 1 tab PO DAILY RF: 0 (DME) Accu-Chek Guide test strips Strip 1 strip MISCELLANEOUS TID RF: 0 amlodipine 5 mg tablet 1 tab PO DAILY RF: 0 oxycodone-acetaminophen 5-325 mg tablet 1 - 2 tab PO Q4H PRN (Reason: pain) RF: 0 (DME) lancets [Accu-Chek Fastclix Lancet Drum] Misc 1 ea topical BID RF: 0 tamsulosin 0.4 mg capsule 1 cap PO BEDTIME RF: 0 metformin 1,000 mg tablet 1 tab PO BID RF: 0 Trulicity 1.5 mg/0.5 mL pen injector 0.5 ml subcut QWEEK RF: 0 Discontinued ibuprofen 600 mg tablet 1 tab PO Q6H PRN (Reason: pain) RF: 0 Discharge Orders: Discharge Order (Routine); Ordered 07/16/20 Ordered By: Yusuf Purdy Activity on Discharge: As tolerated Patient Instructions: Enoxaparin (By injection) Visit Report Forms: Patient Portal Discharge page Care Plan Goals: manage liver masses Health Concerns: liver masses Plan of Treatment: 5 days levaquin follow up with gi and oncology
--- NOTE | 2020-07-16 11:17 | MHC.CM.PN ---
PATIENT DISCHARGED PRIOR TO CASE MANAGEMENT MEETING WITH PATIENT.
--- NOTE | 2020-07-16 11:42 | MHC.CM.PN ---
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 CALL TO DAUGHTER IN LAW, . IMM VERBALLY DELIVERED. FAMILY TO BE IN TO TRANSPORT PATIENT. RN AWARE OF PLAN. IMM 07/16 IN CHART
[2020-07-16] MEDS: Insulin Lispro 100 UNIT/ML 3 ML VIAL SUBCUT (12:08)
[2020-07-16] MEDS: levoFLOXacin 500 MG TABLET PO (12:09)
[2020-07-16 12:28] LABS: Glucose, Whole Blood 231 mg/dL (60-115)
--- NOTE | 2020-07-16 12:53 | P.CNGI_ITS ---
History of Present Illness Data of Consult Service Date: 07/16/20 Requesting physician: Yusuf Purdy Primary Care Provider: Senthil Cardona MD HPI Reason for consult: Cirrhosis with recent onset ascites 85-year-old male with history of diabetes and hypertension, seen at [facility] ED on 07/14/20 with abdominal distension for the past 3-4 weeks. He was not too concerned. His daughter in-law noticed abdominal swelling and asked him to come to the ED. Patient admits to unintentional wt loss of 22 lbs over the past several months. He reports that his weight loss is likely secondary to his insulin use. He denies any fever, jaundice, nausea or vomiting. He admits to intermittent non-bloody diarrhea. He denies noting lower extremity edema (1+ pitting edema is present on PE). Labs in ED were significant for BUN of 33 with a creatinine of 1.42, TB of 2.6 with a DB of 1.8, AST of 152, ALT of 129, alk phos son 186, lipase of [address] scan showed cirrhosis of the liver, suspect large mass in the central portion of the liver, and large volume of abdominal ascites Patient underwent diagnostic and therapeutic paracentesis in the ED with removal of 3.5 L of fluid. Ascitic fluid analysis confirmed presence of SBP and patient was started on antibiotics. SAAG ratio was 2.2 consistent with ascites due to portal hypertension. Patient was admitted for further management. Patient denies past history of jaundice, hepatitis or liver disease. He notes he was started on weekly insulin (Trulicity) ? due to elevated LFTs. An abdominal MRI was performed today and results as noted below. CEA was normal, AFP and CA 19-9 are still pending. Review of Systems Constitutional: Constitutional: Denies fever(s) and Reports weight loss (wt loss of 22 lbs over the past several months) ENT: Denies Normal hearing present (Hard of hearing) Cardiovascular: Cardiovascular: Denies chest pain and Denies dyspnea Respiratory: Respiratory: Denies chest congestion, Reports cough ( in termittent cough) and Denies dyspnea Gastrointestinal: Gastrointestinal: Reports bloating, Reports change in bowel habits and Reports diarrhea Neurologic: Reports system reviewed and no additional complaints, except as documented and Denies Normal hearing present (Hard of hearing) Psychiatric: Psychiatric: Reports no additional psychiatric complaints PMFSH Past Medical History Medical History Arthritis Cataract Diabetes HTN (hypertension) Hypercholesteremia Liver mass Family History Pertinent family history: patient is and lives with his son and [id number]. He has 4 sons. Family history: reviewed and not pertinent ( patient denies known family history of colon polyps, colon cancer or GI malignancy.Dad at age 45 with alcohol related liver disease.) Surgical History Surgical History (Updated 07/15/20 @ 13:09 by Marie Lugo MD) H/O hernia repair Social History Social History (Updated 07/16/20 @ 14:23 by Shelia Sam MD) Household Members: Family Do you presently have visiting nurse or other home services: No Alcohol intake: former Smoking Status: Never smoker Use of substances other than those prescribed or required for medical reasons: No Currently Displaying Signs/Symptoms of Drug Intoxication Withdrawal: No Have you been hit, kicked, punched, or otherwise hurt by someone within the past year? If so, by whom?: No Do you feel safe in your current relationship?: No Is there a partner from a previous relationship who is making you feel unsafe now?: No Are you made to feel afraid or neglected: No Advance Directives: No Advance Directives Information Provided: Yes Do you have thoughts of harming others: None Do you have a plan to hurt others: No Plan Recently lost weight without trying: No Current occupational status: previously employed Current occupation: worked in a [employer] Allergies Allergy/AdvReac Type Severity Reaction Status Date / Time No Known Allergies Allergy Unverified 06/30/20 15:01 Home Medications Medication Instructions Recorded Confirmed Type Accu-Chek Guide test strips 07/15/20 07/15/20 History Trulicity 0.5 ml SUBCUT QWEEK 07/15/20 07/15/20 History amlodipine 1 tab PO DAILY 07/15/20 07/15/20 History atorvastatin 1 tab PO DAILY 07/15/20 07/15/20 History lancets [Accu-Chek Fastclix Lancet 07/15/20 07/15/20 History Drum] metformin 1 tab PO BID 07/15/20 07/15/20 History oxycodone-acetaminophen 1 - 2 tab PO Q4H PRN 07/15/20 07/15/20 History tamsulosin 1 cap PO BEDTIME 07/15/20 07/15/20 History Physical Exam Vital Signs and I&O and Narrative: Vital Signs and I&O: Vital Signs Temp 98.7 F 07/16/20 11:46 Pulse 83 07/16/20 11:46 Resp 18 07/16/20 11:46 BP 103/52 L 07/16/20 11:46 Pulse Ox 97 07/16/20 11:46 Intake & Output 07/15/20 07/16/20 07/16/20 18:59 06:59 18:59 Intake Total 961.667 / 1141.667 180 / 1141.667 Output Total Balance 961.667 / 1130.667 169 / 1130.667 Urine Output (Aver age ml/kg/hr) 0.01 Weight 335 lb 1.642 oz 346 lb 2.012 oz Intake: Intake, Oral Fallon unt 240 / 420 180 / 420 Intake, IV Amoun t 721.667 / 721.667 0.9 % Sodium C hloride 1,000 ml 721.667 / 721.667 @ 100 mls/hr I VCONT .Q10H [facility] Rx#:[id number] Output: Output, Urine Am ount Other: Meal Refused No No Breakfast % Eate n 100% Lunch % Eaten 100% Dinner % Eaten 100% Number of Incont inent Voids 5 Number of Unmeas ured Voids 3 Stool Bathroom Stool Color Brown Stool Consistenc y Liquid Body Mass Index 51.1 Const: General: cooperative, no acute distress and ill appearing Nutritional Appearance: underweight Orientation/consciousness: patient oriented x3 HENMT: Head: Yes normal to inspection Ears: hearing grossly impaired (hard of hearing and wears a hearing aid in left ear) Eyes: General: appearance normal, both eyes and all related structures Neck: Neck: Yes normal visual inspection Chest: Chest palpation & inspection: normal inspection of the chest Resp: Effort & Inspection: able to speak in complete sentences Auscultation: clear to auscultation bilaterally Cardio: Rate: regular rate Rhythm: regular rhythm Heart sounds: S1 normal heart sound present, S2 normal heart sound present and no murmurs GI: Inspection: Yes distended (due to ascites) and Yes caput medusae present Palpation (GI): Ascites present Auscultation: normal bowel sounds Rectal Exam - Male: Yes deferred Neuro: General: patient oriented x3 Cranial nerves: No Normal hearing present (Hard of hearing) Extrem: Right lower extremity: edema Details: pitting and 1+ Left lower extremity: edema Details: pitting and 1+ Results Labs CBC & Chem 7: 07/16/20 06:55 07/16/20 06:55 Labs: Short CBC 07/16/20 Range/Units 06:55 WBC 6.3 (4.8-10.8) X10*3/uL Hgb 11.0 L (14.0-18.0) g/dl Hct 32.5 L (42-52) % Plt Count 296 D (160-400) X10*3/uL BMP 07/16/20 07/16/20 06:55 06:55 Sodium 136 135 Potassium 4.0 4.0 Chloride 106 106 Carbon Dioxide 21 L 21 L BUN 28 H 28 H Creatinine 1.07 1.05 Calcium 8.0 L 8.1 L Microbiology Microbiology Results: Microbiology 07/15/20 01:42 Ascites Fluid Gram Stain - Final Imaging MRI - abdomen: Attestation: I personally reviewed and interpreted this imaging study as follows: Radiologist's impression: [place] [id number] Magnetic Resonance Report Signed Patient: Lloyd Bullock RMR#: [id number] : 7Acct:[id number] Age/Sex: 85 / MADM Date: 07/15/20 Loc: [id number].F8137-[address]: Yusuf Purdy MD Ordering Physician: YUSUF PURDY MD Date of Service: 07/15/20 Procedure(s): MR abdomen wo/w con Accession Number(s): [id number] cc: ~ LIVER: Liver measures 17.4 cm longitudinally and demonstrates a lobulated nodular contour, consistent with liver cirrhosis. As seen on the CT scan, there is a large mass seen completely replacing segment 8 and extending into segment 5, measuring 10.6 x 9.5 x 11.6 cm in size and appearing heterogeneously isointense on T1-weighted and T2-weighted sequences with a T1 dark and T2 bright rim (series 3, image 17; series 6, image 13). Postcontrast, there is low level heterogeneous arterial phase predominantly peripheral enhancement of this mass with several central nodular areas of hypo-/nonenhancement. Some of the arterial phase enhancing regions demonstrate washout on delayed sequences, though evaluation overall is extremely limited due to extensive artifact. There is delayed noncentral rim enhancement of the entire mass. This mass splays the right and middle hepatic veins, which are attenuated and also causes extensive mass effect on the right portal vein. Evaluation of the right portal vein is limited due to extensive motion artifact. The right portal vein may be markedly attenuated due to extensive mass effect versus occluded (bland versus tumor thrombus). There is an additional subtle mass in hepatic segment 2, measuring 4.8 x 2.7 cm (series 8, image 54) with identical imaging characteristics as the large mass described above. There is adjacent third 0.8 cm mass in hepatic segment 2 (series 6, image 14), also demonstrating identical imaging characteristics. Liver parenchyma is heterogeneous in signal. There is large volume ascites in the abdomen and extending into the pelvis. IMPRESSION: 1. Cirrhotic liver with evidence of portal venous hypertension as evidenced by large volume ascites and small periportal varices. There are 3 superimposed hepatic masses, largest of which is seen nearly completely replacing hepatic segment 8. In the setting of liver cirrhosis, the imaging characteristics of these masses are suspicious, though not entirely diagnostic for hepatocellular carcinoma. Diagnostic confidence is low given the suboptimal scan obtained. 2. There is nonvisualization of the right portal vein, at least in part related to attenuation by extrinsic mass effect by the large central hepatic mass. Thrombosis (bland versus tumor thrombus) of the right portal vein may also be possible. 3. Mild intrahepatic ductal dilatation in the right and left lobes of the liver due to mass effect by the liver masses on the central intrahepatic biliary tree. 4. Poorly characterized cystic masses in the pancreatic body and tail. 5. Multiple renal masses, most consistent with cysts. Assessment and Plan (1) Liver cirrhosis: Status: Acute (2) Liver mass: Status: Acute (3) Ascites: Status: Acute Unfortunate 85-year-old male with history of diabetes and hypertension admitted with recent onset ascites and Cirrhosis. Meld score is 12. Etiology of cirrhosis is unclear likely due to AMAYA associated with long standing DM. Hepatitis B and C serologies were negative. Of note, patient had right inguinal hernia repair on 06/07/2020. Ascitic fluid analysis showed presence of SBP and patient was started on antibiotics. SAAG ratio is 2.2 consistent with ascites due to portal hyperte nsion. Abdominal MRI showed 3 superimposed hepatic masses, largest 10.6 x 9.5 x 11.6 cm in size completely replacing hepatic segment 8. Masses are suspicious, though not entirely diagnostic for hepatocellular carcinoma. RECOMMENDATIONS: 1. Check iron studies to rule out hemochromatosis - iron studies cw anemia of chronic disease. 2. Agree with continuing Levofloxacin for 5 days for SBP treatment. 3. Start low dose spironolactone 25 mg once daily for ascites and check a BNP next week. 4. Ok to DC home and follow up with Oncology and GI as outpatient. (4) Diabetes: Status: Acute
[2020-07-16] MEDS: Spironolactone 25 MG TABLET PO (12:55)
[2020-07-16 13:57] LABS: Iron 24 mcg/dL (45-160); Percent Iron Saturation 13 % (15-50); Total Iron Binding Capacity 186 mcg/dL (228-428); Unsaturated Iron Binding 162 ug/dL
[2020-07-16 14:17] LABS: Ferritin 560 ng/mL (20-250)
[2020-07-18 09:55] LABS: Vitamin B12 534 pg/mL (200-900)
[2020-07-18 11:56] LABS: Carbohydrate Antigen 19-9 40 U/mL (<34)
[2020-07-18 14:37] LABS: Alpha Fetoprotein 3.8 ng/mL (<6.1)
--- NOTE | 2020-07-20 10:35 | CONS_ITS ---
DATE OF SERVICE: 07/15/2020 REFERRING PHYSICIAN: Ant Castro REASON FOR CONSULTATION: Cirrhosis with ascites and liver lesion. HISTORY OF PRESENT ILLNESS: The patient is an 85-year-old man, who was admitted to the hospital on July 15 after presenting to the emergency room with abdominal distention and diarrhea. There was no associated nausea or vomiting, and he reports some anorexia as well as a 20 pounds weight loss. Evaluation in the emergency department showed elevation of his liver enzymes and CT scanning showed a large mass in the liver with associated cirrhotic changes as well as ascites. He underwent paracentesis with 3.5 L drained from the abdomen with improvement in his discomfort. He denies a prior history of cirrhosis or ascites. He has not had jaundice or variceal bleeding. PAST MEDICAL HISTORY: 1. Hypertension. 2. Elevated cholesterol. 3. Arthritis. 4. Cataracts. 5. Diabetes mellitus. CURRENT MEDICATIONS: His current medication list is reviewed in the chart. ALLERGIES: THERE ARE NONE REPORTED. FAMILY HISTORY: This is reviewed with the patient and is noncontributory. SOCIAL HISTORY: There is no current tobacco, alcohol, or substance abuse. He formally drank alcohol, but not to excess by his report. REVIEW OF SYSTEMS: SKIN: No pruritus. HEENT: Negative. CARDIOPULMONARY: No shortness of breath or chest pain. GASTROINTESTINAL: As above. GENITOURINARY: Negative. NEUROPSYCHIATRIC: Negative. PHYSICAL EXAMINATION: GENERAL: Shows an elderly male, in no acute distress. VITAL SIGNS: Reviewed in the electronic medical record. SKIN: Anicteric. HEENT: No scleral icterus. NECK: Without lymphadenopathy or thyromegaly. LUNGS: Clear. HEART: Regular rate and rhythm. S1, S2. No murmur. ABDOMEN: Soft without focal masses. There does appear to be some residual fluid. Bowel sounds are present. No organomegaly is noted. EXTREMITIES: Show edema. LABORATORY DATA: Reviewed. Liver tests show elevations of his bilirubin, alkaline phosphatase, and transaminases. Imaging studies are reviewed. MRI is pending. IMPRESSION: Cirrhosis. The cause of his cirrhosis could be related to fatty liver with progression to steatohepatitis, possibly with a component from alcohol use in the past. He is scheduled for further evaluation of his abnormal CT scan of the liver with an MRI and has been seen in consultation from an Oncology standpoint. Depending on the results of this, he may need further evaluation with biopsy. His ascites fluid is consistent with portal hypertension and diuretic therapy will be useful to help control this. He may need further evaluation with repeat paracentesis depending on his clinical course. Thanks for asking me to see him. I will follow him in the hospital with you. MD GERI Ramey/FAITH / [phone]
== END 2020-07-16 14:30 | disposition home or self-care (01) | DRG 433 ==
LOC: HO.ED 07-15 01:08 → HO.S3 07-15 01:35
PROVIDERS: Internal Medicine Gastroenterology; Admitting Provider Internal Medicine; Emergency Provider Emergency Medicine Emergency Medical Services; Visit Provider Internal Medicine
DX: K74.60 Unspecified cirrhosis of liver (principal); R18.8 Other ascites; E78.00 Pure hypercholesterolemia, unspecified; R16.0 Hepatomegaly, not elsewhere classified; E11.9 Type 2 diabetes mellitus without complications; I10 Essential (primary) hypertension; M19.90 Unspecified osteoarthritis, unspecified site; K75.81 Nonalcoholic steatohepatitis (NASH); Z79.84 Long term (current) use of oral hypoglycemic drugs; Z79.891 Long term (current) use of opiate analgesic; Z79.899 Other long term (current) drug therapy
CPT/HCPCS: 36415; 74177; 74183; 80048; 80053; 80076; 81003; 82042; 82105; 82378; 82607; 82728; 82947; 83540; 83690; 84300; 85025; 85610; 86301; 86704; 86706; 86803; 87070; 87205; 87340; 88112; 88305; 88341; 88342; 89051; 96361; 96374; 99285; J1650; J2405

== ENCOUNTER 2020-07-26 09:36 | Day surgery (SDC) | payer MEDICARE, SELFPAY ==
--- NOTE | 2020-07-26 | US_ITS ---
EXAMINATION: ULTRASOUND-GUIDED PARACENTESIS AND LIVER BIOPSY CLINICAL INFORMATION: Ascites. Liver mass. COMPARISON: Previous CT of the abdomen and pelvis 07/14/2020 and MR of the abdomen 07/15/2020 TECHNIQUE: Paracentesis and liver biopsy procedure and risks and benefits including bleeding and infection were discussed with the patient and informed consent was obtained. Initially, the right lower quadrant was prepped and draped in the usual sterile fashion. The skin and soft tissues were anesthetized with 1% lidocaine plain. Using ultrasound guidance and a 5 Estonian rapid centesis catheter, access to the ascitic fluid was obtained. 7.2 L of serosanguineous/slightly bloody fluid was removed. Diagnostic specimen was sent. Subsequently, the right upper quadrant was prepped and draped in the usual sterile fashion. The skin and soft tissues were anesthetized with 1% lidocaine plain. Using ultrasound guidance and a coaxial system, access to the large mass in the medial segment of the left lobe and anterior segment of the right lobe of the liver was obtained. 3 20-gauge core biopsies were obtained. Hemostasis was achieved using 4 Gelfoam pledgets. Subsequently, manual pressure was held over the skin site. The patient received Versed 0.5 mg and fentanyl 25 mcg intravenously during the procedure. Total sedation time was 18 minutes. FINDINGS: There is a large amount of ascites. Ultrasound following paracentesis demonstrated trace remaining ascites. Liver echotexture is heterogeneous. There are multiple heterogeneous liver masses seen. Largest mass measuring 11 x 12 cm was targeted for core biopsy. Postprocedure demonstrates no evidence of hemorrhage. IMPRESSION: Ultrasound-guided paracentesis and liver biopsy.
[2020-07-26 10:10] VITALS: BP 122/61; PULSE 87; RESP 24; TEMP 36.9; O2SAT 98
[2020-07-26 10:23] LABS: Glucose, Whole Blood 110 mg/dL (60-115)
[2020-07-26 10:29] LABS: MANUAL DIFF FLAG NO
[2020-07-26 10:50] LABS: Basophils Absolute Auto 0.1 X10*3/uL (0.0-0.2); Basophils Percent Auto 0.6 % (0-2); Hematocrit 36.1 % (42-52); Hemoglobin 12.1 g/dl (14.0-18.0); Imm Gran Abs Auto 0.04 X10*3/uL (0.00-0.03); Imm Gran Pct Auto 0.5 % (0.0-0.4); Lymphocytes Absolute Auto 0.8 X10*3/uL (1.2-4.9); Lymphocytes Percent Auto 9.4 % (20-40); Mean Corpuscular HGB Conc 33.5 g/dl (31.0-36.0); Mean Corpuscular Volume 83.6 fL (80-98); Mean Platelet Volume 9.4 fL (9.4-12.4); Monocytes Absolute Auto 0.8 X10*3/uL (0.1-1.2); Monocytes Percent Auto 8.9 % (2-11); Neutrophils Percent Auto 80.6 % (45-73); Platelet Count 381 X10*3/uL (160-400); Red Blood Count 4.32 X10*6/uL (4.60-5.80); Red Cell Distribution Width 18.9 % (11.0-16.0); White Blood Count 8.6 X10*3/uL (4.8-10.8)
[2020-07-26 10:58] LABS: INTERNATIONAL NORM RATIO 1.2 (0.9-1.1); Prothrombin Time 14.7 SEC (10.8-13.0)
--- NOTE | 2020-07-26 12:59 | HO.RADPN ---
RADIOLOGY Narrative Narrative: rlq PARACENTESIS PERFORMED USING 5 fR ANGIOCATH. 7 l BLOODY SEROSANGUINOUS FLUID REMOVED. nEXT us GUIDED LIVER BIOPSY USING COAXIAL SYSTEM. 3 20 g core biopsies obtained followed by gelfoam pledgets. No evidence of bleeding.
--- NOTE | 2020-07-26 13:02 | HO.RADPN ---
RADIOLOGY Narrative Narrative: Right lower quadrant paracentesis using 5 fr catheter. 7.2 L bloody fluid removed. Next US guided core liver biopsy using coaxial system. 3 20 g core biopsies obtained followed by gelfoam pledgets. No sign of bleeding.
[2020-07-26 13:15] VITALS: BP 119/57; PULSE 73; RESP 18; TEMP 37.3; O2SAT 95
[2020-07-26] MEDS: Lidocaine HCl 1 % 20 ML VIAL 5 ML SUBCUT ×2 (13:42→13:45)
[2020-07-26 13:45] VITALS: BP 114/59; PULSE 75; RESP 18; O2SAT 96
[2020-07-26 14:15] VITALS: BP 110/57; PULSE 88; RESP 18; O2SAT 96
[2020-07-26 14:46] VITALS: BP 120/64; PULSE 82; RESP 18; O2SAT 95
[2020-07-26 15:14] VITALS: BP 119/56; PULSE 78; RESP 18; TEMP 522.7; TEMP 973; O2SAT 97
[2020-07-27 11:26] LABS: Glucose Peritoneal Fluid 138; Total Protein Peritoneal Fluid 2.2
[2020-07-27 11:42] LABS: LDH Peritoneal Fluid 116
== END 2020-07-26 23:59 ==
PROVIDERS: Radiology Diagnostic Radiology; PCP Family Medicine; Visit Provider Internal Medicine Medical Oncology
DX: R18.8 Other ascites (principal); C22.0 Liver cell carcinoma; R16.0 Hepatomegaly, not elsewhere classified
CPT/HCPCS: 36415; 47000; 49083; 76942; 82945; 82947; 83615; 84157; 85025; 85610; 85730; 87071; 87116; 87205; 88112; 88305; 88307; 88313; C1729; J2250; J3010

== ENCOUNTER 2020-08-05 05:59 | Inpatient (IN) | payer MEDICARE, SELFPAY ==
[2020-08-05] VITALS (9 sets, daily range): BP systolic 100–136; BP diastolic 52–79; PULSE 73–95; RESP 16–22; TEMP 36–36.7; O2SAT 95–98; BMI 22.4
--- NOTE | 2020-08-05 | ECG_ITS ---
Test Reason : FALL Blood Pressure : / mmHG Vent. Rate : 077 BPM Atrial Rate : 077 BPM P-R Int : 216 ms QRS Dur : 102 ms QT Int : 394 ms P-R-T Axes : 075 -38 033 degrees QTc Int : 445 ms Sinus rhythm with 1st degree A-V block Left axis deviation Low voltage QRS Inferior infarct , age undetermined Anterolateral infarct , age undetermined Abnormal ECG No previous ECGs available Referred By: Chip Epstein Electronically Signed By:TAYLOR MILLAN MD
--- NOTE | 2020-08-05 07:07 | CT_ITS ---
EXAMINATION: CT HEAD WITHOUT CONTRAST CLINICAL INFORMATION: Fall. COMPARISON: None TECHNIQUE: Contiguous axial imaging was performed from the skull base to vertex without intravenous administration of contrast. This CT examination was performed using dose optimization techniques as appropriate, variously including the following: *Automated exposure control *Adjustment of mA and/or kV according to patient size (this includes techniques or standardized protocols for targeted exams where dose is matched to indication/reason for exam; i.e. extremities or head) *Use of iterative reconstruction technique DLP: 574 mGy-cm FINDINGS: There is no evidence of acute intracranial hemorrhage or territorial infarction. No abnormal mass effect or midline shift is seen. Cortes to white matter differentiation is well preserved. No extra-axial fluid collections are identified. The ventricles are normal in size. 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 The osseous structures and soft tissues are notable for a lucent lesion involving the medullary space and the outer table right frontal bone measuring approximately 1 cm. The mastoid air cells and visualized portions of the paranasal sinuses are well aerated. CT/CT head/brain wo con IMPRESSION: No acute intracranial pathology. Right frontal bone lucent lesion nonspecific. Lytic metastasis is not excluded. Overall favor a benign lesion such as venous manzo or hemangioma which can appear this way as well.
--- NOTE | 2020-08-05 07:08 | ED.GENADULT ---
HPI - General Adult General Chief complaint: Fall Stated complaint: FALL Time Seen by Provider: 08/05/20 06:58 Source: patient, family and EMS Mode of arrival: wheelchair Limitations: no limitations History of Present Illness HPI narrative: patient comes to the emergency room for increased falls. The patient states that earlier this morning he slipped, landed on her side, at this moment he denies any pain. Patient states he was too weak to get up but his son helps him up. Patient was recently diagnosed with a liver mass on 07/14/2020. Patient denies any new symptoms other than the falling. The patient's son called EMS that the patient has been falling frequently over the last few days. Patient denies being on blood thinners, no head injury, no headache, denies pain anywhere else in his body. Patient states he feels well Related Data Home Medications Medication Instructions Recorded Confirmed Accu-Chek Guide test strips 07/15/20 07/21/20 Trulicity 0.5 ml SUBCUT QWEEK 07/15/20 07/21/20 amlodipine 5 mg PO DAILY 07/15/20 07/21/20 atorvastatin 20 mg PO DAILY 07/15/20 07/21/20 lancets [Accu-Chek Fastclix Lancet 07/15/20 07/21/20 Drum] metformin 1,000 mg PO BID 07/15/20 07/21/20 tamsulosin 0.4 mg PO BEDTIME 07/15/20 07/21/20 pioglitazone 1 tab PO DAILY 07/21/20 07/21/20 pioglitazone 45 mg PO DAILY 07/21/20 07/21/20 Previous Rx's Medication Instructions Recorded levofloxacin 500 mg PO Q24H #5 tab 07/16/20 spironolactone [Aldactone] 25 mg PO DAILY #30 tab 07/16/20 Allergies Allergy/AdvReac Type Severity Reaction Status Date / Time No Known Allergies Allergy Verified 07/26/20 10:00 Review of Systems Review of Systems: Constitutional : No Fever, No Chills, No Night Sweats, No Fatigue, No Malaise ENT/Mouth : No Hearing loss, No Ear Pain, No Nasal Congestion, No Sinus Pain, No Hoarseness, No sore throat, No Rhinorrhea, No Swallowing Difficulty Eyes: No Eye Pain, No Swelling, No Redness, No Foreign Body, No Discharge, No Vision Changes Cardiovascular : No Chest Pain, No SOB, No Dyspnea on Exertion, No Orthopnea, No Edema, No Palpitations Respiratory : No Cough, No Sputum, No Wheezing, No Smoke Exposure, No Dyspnea Gastrointestinal : No Nausea, No Vomiting, No Diarrhea, No Constipation, No abdominal Pain, No Hematochezia, No Melena, complaining of abdominal distension Genitourinary : no irregular bleeding, No Dysuria, No Urinary Frequency, No Hematuria, No Urinary Incontinence, No Urgency, No Flank Pain, No Urinary Flow Changes, No Hesitancy Musculoskeletal : No joint pain, No Myalgias, No Joint Swelling Skin : No Skin Lesions, No rash Neuro : No Weakness, No Numbness, No Paresthesias, No Loss of Consciousness, No Dizziness, No Headache Psych : No Anxiety/Panic, No Depression, No SI/HI/AH/VH, No Social Issues, Heme/Lymph: No Bruising, No Bleeding,No Lymphadenopathy Endocrine : No Polyuria, No Polydipsia, No Temperature Intolerance FOR[facility]LY [facility], [facility] Past Medical History Medical History Arthritis Cataract Diabetes HTN (hypertension) Hypercholesteremia Liver mass Surgical History H/O hernia repair Social History Social History Household Members: Family Alcohol intake: unknown Smoking Status: Unknown if ever smoked Use of substances other than those prescribed or required for medical reasons: No Advance Directives: Yes Advance Directives on File: Yes Advance Directives Date on File: 07/26/20 Current occupational status: previously employed Current occupation: worked in a [employer] Physical Exam Vital Signs: Vital Signs: Vital Signs Temp Pulse Resp BP Pulse Ox 08/05/20 10:37 22 H 132/60 08/05/20 09:16 75 18 105/64 08/05/20 07:10 98.1 F 89 106/53 L 98 08/05/20 07:07 98.1 F 85 20 106/53 L 98 Body Mass Index 22.4 Appearance: Alert. Oriented X2. No acute distress. speaks very slowly with effort Eyes: Pupils equal, round and reactive to light. ENT: Pharynx normal. Neck: Normal inspection. Neck supple. No lymph nodes noted. No crepitus CVS: Normal heart rate and rhythm. Pulses normal. Normal S1 and S2, systolic murmur Respiratory: No respiratory distress. Breath sounds normal. No Wheezing. No rales Abdomen: Soft and nontender. No rigidity. mildly distended likely secondary to ascites, present caput medusa Skin: Skin warm and dry. Normal skin color. Normal skin turgor. Extremities: No lower extremity edema. No lower extremity edema. No Lacerations. No Rash Neuro: Oriented X 3. No motor deficit. No sensory deficit. Moving all extermities. No slurred speech. Course Course Course Narrative: patient received IV fluids, the renal function did not improve. I discussed the above-mentioned with our hospitalist, patient being admitted Medical Decision Making Lab Data Result diagrams: 08/05/20 07:54 08/05/20 11:32 Labs: Lab Results 08/05/20 08/05/20 08/05/20 Range/Units 07:54 07:54 10:38 WBC 9.3 (4.8-10.8) X10*3/uL RBC 4.37 L (4.60-5.80) X10*6/uL Hgb 12.4 L (14.0-18.0) g/dl Hct 35.9 L (42-52) % MCV 82.2 (80-98) fL MCH 28.4 (27.0-33.0) pg MCHC 34.5 (31.0-36.0) g/dl RDW 20.3 H (11.0-16.0) % Plt Count 304 (160-400) X10*3/uL MPV 9.4 (9.4-12.4) fL Immature Gran % (Auto) 0.3 (0.0-0.4) % Neut % (Auto) 86.4 H (45-73) % Lymph % (Auto) 7.0 L (20-40) % [place] % (Auto) 6.0 (2-11) % Eos % (Auto) 0.1 (0-4) % Baso % (Auto) 0.2 (0-2) % Lymph # (Auto) 0.7 L (1.2-4.9) X10*3/uL [place] # (Auto) 0.6 (0.1-1.2) X10*3/uL Eos # (Auto) 0.0 (0.0-0.4) X10*3/uL Baso # (Auto) 0.0 (0.0-0.2) X10*3/uL Abs Immat Gran (auto) 0.03 (0.00-0.03) X10*3/uL Absolute Neuts (auto) 8.0 (2.0-8.3) X10*3/uL Absolute Nucleated RBC 0.000 (0.0-0.012) X10*3/uL Nucleated RBC % (auto) 0.0 (0.0-0.2) /100WBC Smear Tech's Comments VERIFIED Sodium 135 (135-145) mmol/L Potassium 5.9 H (3.3-5.1) mmol/l Chloride 107 (96-108) mmol/L Carbon Dioxide 17 L (22-29) mmol/L Anion Gap 17 (12-20) BUN 90 H* (9-16) mg/dL Creatinine 2.39 H (0.5-1.4) mg/dL Estim Creat Clear Calc 22.8 Estimated GFR 26 Random Glucose 182 H (60-115) mg/dL Calcium 8.7 (8.4-10.2) mg/dL Total Bilirubin 3.3 H (0.0-1.0) mg/dL Direct Bilirubin 2.4 H (0.0-0.5) mg/dL AST 174 H (5-37) U/L ALT 142 H (0-40) U/L Alkaline Phosphatase 809 H (39-117) U/L Total Protein 5.9 L (6.5-8.0) g/dL Albumin 2.7 L (3.5-5.0) g/dL Urine Color YELLOW Urine Appearance HAZY Urine pH 5.5 (5.0-8.0) Ur Specific [place] 1.015 (1.005-1.025) Urine Protein NEG (NEG-TRACE) MG/DL Urine Glucose (UA) NEG (NEG) MG/DL Urine Ketones NEG (NEG) MG/DL Urine Blood NEG (NEG) Urine Nitrite NEG (NEG) Ur Leukocyte Esterase NEG (NEG) 08/05/20 Range/Units 11:32 WBC (4.8-10.8) X10*3/uL RBC (4.60-5.80) X10*6/uL Hgb (14.0-18.0) g/dl Hct (42-52) % MCV (80-98) fL MCH (27.0-33.0) pg MCHC (31.0-36.0) g/dl RDW (11.0-16.0) % Plt Count (160-400) X10*3/uL MPV (9.4-12.4) fL Immature Gran % (Auto) (0.0-0.4) % Neut % (Auto) (45-73) % Lymph % (Auto) (20-40) % [place] % (Auto) (2-11) % Eos % (Auto) (0-4) % Baso % (Auto) (0-2) % Lymph # (Auto) (1.2-4.9) X10*3/uL [place] # (Auto) (0.1-1.2) X10*3/uL Eos # (Auto) (0.0-0.4) X10*3/uL Baso # (Auto) (0.0-0.2) X10*3/uL Abs Immat Gran (auto) (0.00-0.03) X10*3/uL Absolute Neuts (auto) (2.0-8.3) X10*3/uL Absolute Nucleated RBC (0.0-0.012) X10*3/uL Nucleated RBC % (auto) (0.0-0.2) /100WBC Smear Tech's Comments Sodium 135 (135-145) mmol/L Potassium 5.7 H (3.3-5.1) mmol/l Chloride 108 (96-108) mmol/L Carbon Dioxide 18 L (22-29) mmol/L Anion Gap 15 (12-20) BUN 88 H* (9-16) mg/dL Creatinine 2.35 H (0.5-1.4) mg/dL Estim Creat Clear Calc 23.2 Estimated GFR 27 Random Glucose 243 H (60-115) mg/dL Calcium 8.3 L (8.4-10.2) mg/dL Total Bilirubin (0.0-1.0) mg/dL Direct Bilirubin (0.0-0.5) mg/dL AST (5-37) U/L ALT (0-40) U/L Alkaline Phosphatase (39-117) U/L Total Protein (6.5-8.0) g/dL Albumin (3.5-5.0) g/dL Urine Color Urine Appearance Urine pH (5.0-8.0) Ur Specific [place] (1.005-1.025) Urine Protein (NEG-TRACE) MG/DL Urine Glucose (UA) (NEG) MG/DL Urine Ketones (NEG) MG/DL Urine Blood (NEG) Urine Nitrite (NEG) Ur Leukocyte Esterase (NEG) Discharge Plan Discharge Clinical Impression: Acute kidney injury superimposed on CKD, Acute hyperkalemia Patient Disposition: Admitted As Inpatient Prescriptions: No Action atorvastatin 20 mg tablet 20 mg PO DAILY RF: 0 (DME) Accu-Chek Guide test strips Strip 1 strip MISCELLANEOUS TID RF: 0 amlodipine 5 mg tablet 5 mg PO DAILY RF: 0 (DME) lancets [Accu-Chek Fastclix Lancet Drum] Misc 1 ea topical BID RF: 0 tamsulosin 0.4 mg capsule 0.4 mg PO BEDTIME RF: 0 metformin 1,000 mg tablet 1,000 mg PO BID RF: 0 Trulicity 1.5 mg/0.5 mL pen injector 0.5 ml subcut QWEEK RF: 0 levofloxacin 500 mg Tablet 500 mg PO Q24H Qty: 5 RF: 0 spironolactone [Aldactone] 25 mg tablet 25 mg PO DAILY Qty: 30 RF: 0 pioglitazone 45 mg tablet 45 mg PO DAILY RF: 0 pioglitazone 45 mg tablet 1 tab PO DAILY RF: 0
[2020-08-05 08:02] LABS: Basophils Percent Auto 0.2 % (0-2); Eosinophils Percent Auto 0.1 % (0-4); Hematocrit 35.9 % (42-52); Hemoglobin 12.4 g/dl (14.0-18.0); Imm Gran Abs Auto 0.03 X10*3/uL (0.00-0.03); Imm Gran Pct Auto 0.3 % (0.0-0.4); Lymphocytes Absolute Auto 0.7 X10*3/uL (1.2-4.9); MANUAL DIFF FLAG SCAN; Mean Corpuscular HGB Conc 34.5 g/dl (31.0-36.0); Mean Corpuscular Hemoglobin 28.4 pg (27.0-33.0); Mean Corpuscular Volume 82.2 fL (80-98); Mean Platelet Volume 9.4 fL (9.4-12.4); Monocytes Absolute Auto 0.6 X10*3/uL (0.1-1.2); Neutrophils Percent Auto 86.4 % (45-73); Platelet Count 304 X10*3/uL (160-400); Red Blood Count 4.37 X10*6/uL (4.60-5.80); Red Cell Distribution Width 20.3 % (11.0-16.0); SCAN SMEAR FLAG 1; White Blood Count 9.3 X10*3/uL (4.8-10.8)
[2020-08-05 08:36] LABS: SLIDE REVIEW VERIFIED
[2020-08-05 08:42] LABS: Alanine Aminotransferase 142 U/L (0-40); Albumin Level 2.7 g/dL (3.5-5.0); Alkaline Phosphatase 809 U/L (39-117); Anion Gap 17 (12-20); Aspartate Amino Transferase 174 U/L (5-37); Bilirubin Direct 2.4 mg/dL (0.0-0.5); Bilirubin Total 3.3 mg/dL (0.0-1.0); Blood Urea Nitrogen 90 mg/dL (9-16); Calcium 8.7 mg/dL (8.4-10.2); Carbon Dioxide 17 mmol/L (22-29); Chloride 107 mmol/L (96-108); Creatinine Clr Calc Pharmacy 22.8; Estimated Glomerular Filt Rate 26; Glucose Random 182 mg/dL (60-115); Potassium 5.9 mmol/l (3.3-5.1); Sodium 135 mmol/L (135-145); Total Protein 5.9 g/dL (6.5-8.0)
[2020-08-05] MEDS: 0.9 % Sodium Chloride 1,000 ML 500 ML IVCONT (10:23)
[2020-08-05] MEDS: Insulin Regular, Human 100 UNIT/ML 3 ML VIAL IVPUSH (10:24)
[2020-08-05 10:47] LABS: Glucose Urine UA NEG (NEG); Leukocyte Esterase Urine NEG (NEG); Nitrite Urine NEG (NEG); PH 5.5 (5.0-8.0); Specific Gravity - Urine 1.015 (1.005-1.025); Urine Blood NEG (NEG); Urine Ketones NEG (NEG); Urine Protein NEG (NEG-TRACE)
[2020-08-05 10:48] LABS: Appearance Urine HAZY; Color Urine YELLOW
--- NOTE | 2020-08-05 12:03 | PC.NURSE ---
patient chem re draw. if k+ is normal patient to be discharged. if not patient will be admitted. son and daughter in law aware of plan.
[2020-08-05 12:12] LABS: Anion Gap 15 (12-20); Calcium 8.3 mg/dL (8.4-10.2); Carbon Dioxide 18 mmol/L (22-29); Chloride 108 mmol/L (96-108); Creatinine Clr Calc Pharmacy 23.2; Estimated Glomerular Filt Rate 27; Glucose Random 243 mg/dL (60-115); Potassium 5.7 mmol/l (3.3-5.1); Sodium 135 mmol/L (135-145)
[2020-08-05 12:13] LABS: Blood Urea Nitrogen 88 mg/dL (9-16)
[2020-08-05] MEDS: 0.9 % Sodium Chloride 1,000 ML 999 ML IVCONT (12:38)
--- NOTE | 2020-08-05 14:12 | PM.IMHP ---
History of Present Illness Date of Service: 08/05/20 Chief Complaint: Falls and weakness This is a 85-year-old male with a past medical history of diabetes, hypertension and a recently diagnosed hepatocellular carcinoma who presents to the hospital with complaints of generalized weakness and several falls over the last about 1 week. Patient is very hard of hearing and as such history is largely obtained from his daughter in-law Celia over the telephone. She reports that this week he has had some mechanical falls particularly at nighttime. There has been no reports of loss of consciousness.No reports of chest pain or shortness of breath. She does endorse that he has become somewhat confused during evening time. Patient is seen and examined in the emergency room. Although hard of hearing, he is able to answer questions. He denies any pain. Chart review reveals that the patient was recently worked up for his liver lesions and it appears that the diagnosis is hepatocellular carcinoma. It appears that he has a follow-up with Interventional Radiology on Saturday08/08/2020. While in the ED, it was noted that the patient had mild hyperkalemia and acute on chronic kidney disease. He was given 2 L of intravenous fluids with a repeat chemistry showing similar values and as such admission was requested. Review of Systems Review of Systems: General - no fevers or chills, +weakness falls HEENT - no BUCK, no sore throat Cardiovascular - no chest pain Respiratory - no shortness of breath or cough Abdominal- no abdominal pain, nausea, vomiting, diarrhea Neuro - weakness, fall, no syncope PMFSH Medical History Arthritis Cataract Diabetes HTN (hypertension) Hypercholesteremia Liver mass Family history: reviewed and not pertinent Surgical History H/O hernia repair Social History Household Members: Family Alcohol intake: unknown Smoking Status: Unknown if ever smoked Use of substances other than those prescribed or required for medical reasons: No Advance Directives: Yes Advance Directives on File: Yes Advance Directives Date on File: 07/26/20 Current occupational status: previously employed Current occupation: worked in a [employer] Allergies Allergy/AdvReac Type Severity Reaction Status Date / Time No Known Allergies Allergy Verified 07/26/20 10:00 Home Medications Medication Instructions Recorded Confirmed Type Accu-Chek Guide test strips 07/15/20 07/21/20 History Trulicity 0.5 ml SUBCUT QWEEK 07/15/20 07/21/20 History amlodipine 5 mg PO DAILY 07/15/20 07/21/20 History atorvastatin 20 mg PO DAILY 07/15/20 07/21/20 History lancets [Accu-Chek Fastclix Lancet 07/15/20 07/21/20 History Drum] metformin 1,000 mg PO BID 07/15/20 07/21/20 History tamsulosin 0.4 mg PO BEDTIME 07/15/20 07/21/20 History pioglitazone 1 tab PO DAILY 07/21/20 07/21/20 History pioglitazone 45 mg PO DAILY 07/21/20 07/21/20 History Physical Exam Vital Signs and Narrative: Vital Signs: Last Vital Signs Temp 98.1 F 08/05/20 07:10 Pulse 75 08/05/20 09:16 Resp 22 H 08/05/20 10:37 BP 132/60 08/05/20 10:37 Pulse Ox 98 08/05/20 07:10 Body Mass Index 22.4 General - no acute distress, appears comfortable Cardiovascular - regular rate and rhythm, S1-S2 Lungs - normal respiratory effort, clear to auscultation bilaterally, no wheezing Abdomen - distended without rebound or guarding; +Fluid thrill; +BS Extremities - no edema bilaterally Neuro - awake and alert, no focal deficits Results Labs Labs: Laboratory Tests 08/05/20 08/05/20 08/05/20 07:54 07:54 10:38 WBC 9.3 RBC 4.37 L Hgb 12.4 L Hct 35.9 L MCV 82.2 MCH 28.4 MCHC 34.5 RDW 20.3 H Plt Count 304 MPV 9.4 Immature Gran % (Auto) 0.3 Neut % (Auto) 86.4 H Lymph % (Auto) 7.0 L [place] % (Auto) 6.0 Eos % (Auto) 0.1 Baso % (Auto) 0.2 Lymph # (Auto) 0.7 L [place] # (Auto) 0.6 Eos # (Auto) 0.0 Baso # (Auto) 0.0 Abs Immat Gran (auto) 0.03 Absolute Neuts (auto) 8.0 Absolute Nucleated RBC 0.000 Nucleated RBC % (auto) 0.0 Smear Tech's Comments VERIFIED Sodium 135 Potassium 5.9 H Chloride 107 Carbon Dioxide 17 L Anion Gap 17 BUN 90 H* Creatinine 2.39 H Estim Creat Clear Calc 22.8 Estimated GFR 26 Random Glucose 182 H Calcium 8.7 Total Bilirubin 3.3 H Direct Bilirubin 2.4 H AST 174 H ALT 142 H Alkaline Phosphatase 809 H Total Protein 5.9 L Albumin 2.7 L Urine Color YELLOW Urine Appearance HAZY Urine pH 5.5 Ur Specific [place] 1.015 Urine Protein NEG Urine Glucose (UA) NEG Urine Ketones NEG Urine Blood NEG Urine Nitrite NEG Ur Leukocyte Esterase NEG 08/05/20 11:32 WBC RBC Hgb Hct MCV MCH MCHC RDW Plt Count MPV Immature Gran % (Auto) Neut % (Auto) Lymph % (Auto) [place] % (Auto) Eos % (Auto) Baso % (Auto) Lymph # (Auto) [place] # (Auto) Eos # (Auto) Baso # (Auto) Abs Immat Gran (auto) Absolute Neuts (auto) Absolute Nucleated RBC Nucleated RBC % (auto) Smear Tech's Comments Sodium 135 Potassium 5.7 H Chloride 108 Carbon Dioxide 18 L Anion Gap 15 BUN 88 H* Creatinine 2.35 H Estim Creat Clear Calc 23.2 Estimated GFR 27 Random Glucose 243 H Calcium 8.3 L Total Bilirubin Direct Bilirubin AST ALT Alkaline Phosphatase Total Protein Albumin Urine Color Urine Appearance Urine pH Ur Specific [place] Urine Protein Urine Glucose (UA) Urine Ketones Urine Blood Urine Nitrite Ur Leukocyte Esterase Assessment and Plan (1) Acute kidney injury superimposed on CKD: Status: Acute This is a 85 yo M with PMH of cirrhosis (cause unclear), DM, HTN, newly diagnosed HCC this month who presents with complaints of generalized weakness and falls. His ED work up is consistent with PHAN on CKD as well as possibility of lytic lesion (less likely) seen on CT scan. 1. PHAN on CKD concern over hepatorenal - will start treamtent given 2L NS in the ED without much improvement in his renal indices check urine studies consult nephrology if no improvement check EKG, give kayexlate 15mg rehcekc chem around 6-7 today 2. Generalized weakness multifactorial due to above + cancer pt and family desire to be home -- plan for home upon d/c 3. Cirrhosis / ascites / HCC no abdominal pain to suggest SBP monitor for now may need therapeutic tap if worsens 4. ? lytic lesion seen on CT head mets less likely per radiology read will d/w the [id number] and complete MRI brain w/wo if agreeable 5. DM hold PO meds diabetic diet ISS Med Rec pending -- continue home meds once completed d/w the daughter in law -- reports DNR/DNI status given his liver cancer diagnosis. DVT pptx, heparin
[2020-08-05 15:56] LABS: Sodium Urine Random < 20.0 mmol/L
[2020-08-05] MEDS: Sodium Polystyrene Sulfon/Sorb 15 GM/60 ML ORAL.SUSP PO (16:25)
[2020-08-05] MEDS: Albumin Human 25 % 100 ML IV ×2 (16:25→17:28)
[2020-08-05] MEDS: Midodrine HCl 2.5 MG TABLET PO (16:26)
[2020-08-05] MEDS: Octreotide Acetate 100 MCG/ML AMPUL SUBCUT (16:27)
[2020-08-05] MEDS: Heparin Sodium,Porcine 5,000 UNIT/ML VIAL 5000 UNIT SUBCUT (16:27)
[2020-08-05] MEDS: 0.9 % Sodium Chloride Flush 3 ML SYRINGE IVFLUSH (16:27)
[2020-08-05 16:30] LABS: Osmolality Urine 449 mosm/kg (373-1093)
[2020-08-05 17:56] LABS: SARS COV2 PCR INHOUSE NEGATIVE (Negative)
[2020-08-05 19:20] LABS: Anion Gap 19 (12-20); Blood Urea Nitrogen 85 mg/dL (9-16); Calcium 8.6 mg/dL (8.4-10.2); Carbon Dioxide 16 mmol/L (22-29); Chloride 109 mmol/L (96-108); Creatinine Clr Calc Pharmacy 24.1; Estimated Glomerular Filt Rate 28; Glucose Random 178 mg/dL (60-115); Potassium 5.8 mmol/l (3.3-5.1); Sodium 138 mmol/L (135-145)
[2020-08-05 20:20] LABS: Glucose, Whole Blood 243 mg/dL (60-115)
[2020-08-05] MEDS: Insulin Lispro 100 UNIT/ML 3 ML VIAL SUBCUT (21:50)
[2020-08-06] VITALS (7 sets, daily range): BP systolic 107–137; BP diastolic 58–69; PULSE 85–92; RESP 18–20; TEMP 35.9–37; O2SAT 95–97
[2020-08-06] MEDS: 0.9 % Sodium Chloride Flush 3 ML SYRINGE IVFLUSH ×2 (00:04→08:11)
[2020-08-06] MEDS: Octreotide Acetate 100 MCG/ML AMPUL SUBCUT ×3 (00:04→14:18)
[2020-08-06] MEDS: Acetaminophen 325 MG TABLET 650 MG PO (00:13)
[2020-08-06] MEDS: Heparin Sodium,Porcine 5,000 UNIT/ML VIAL 5000 UNIT SUBCUT ×2 (05:12→16:39)
[2020-08-06 07:13] LABS: Basophils Percent Auto 0.1 % (0-2); Hematocrit 33.7 % (42-52); Hemoglobin 11.7 g/dl (14.0-18.0); Imm Gran Abs Auto 0.02 X10*3/uL (0.00-0.03); Imm Gran Pct Auto 0.3 % (0.0-0.4); Lymphocytes Absolute Auto 0.6 X10*3/uL (1.2-4.9); Lymphocytes Percent Auto 8.2 % (20-40); MANUAL DIFF FLAG SCAN; Mean Corpuscular HGB Conc 34.7 g/dl (31.0-36.0); Mean Corpuscular Hemoglobin 28.5 pg (27.0-33.0); Mean Platelet Volume 9.9 fL (9.4-12.4); Monocytes Absolute Auto 0.6 X10*3/uL (0.1-1.2); Monocytes Percent Auto 8.6 % (2-11); Neutrophils Absolute Auto 5.7 X10*3/uL (2.0-8.3); Neutrophils Percent Auto 82.8 % (45-73); Platelet Count 316 X10*3/uL (160-400); Red Blood Count 4.11 X10*6/uL (4.60-5.80); Red Cell Distribution Width 20.5 % (11.0-16.0); SCAN SMEAR FLAG 1; White Blood Count 6.8 X10*3/uL (4.8-10.8)
[2020-08-06 07:47] LABS: Glucose, Whole Blood 201 mg/dL (60-115)
[2020-08-06 08:05] LABS: SLIDE REVIEW VERIFIED
[2020-08-06 08:19] LABS: Anion Gap 17 (12-20); Blood Urea Nitrogen 80 mg/dL (9-16); Calcium 8.4 mg/dL (8.4-10.2); Carbon Dioxide 15 mmol/L (22-29); Chloride 111 mmol/L (96-108); Creatinine Clr Calc Pharmacy 26.5; Estimated Glomerular Filt Rate 31; Glucose Random 227 mg/dL (60-115); Sodium 137 mmol/L (135-145)
[2020-08-06] MEDS: Sodium Polystyrene Sulfon/Sorb 15 GM/60 ML ORAL.SUSP 30 GM PO (09:51)
[2020-08-06] MEDS: Sodium Bicarbonate 8.4% 50 MEQ in Dextrose 5 % 950 ML IV (11:17)
[2020-08-06 11:25] LABS: Glucose, Whole Blood 185 mg/dL (60-115)
[2020-08-06] MEDS: Insulin Lispro 100 UNIT/ML 3 ML VIAL SUBCUT ×3 (11:34→20:57)
--- NOTE | 2020-08-06 11:48 | HO.PM.IMPN ---
Subjective Subjective Date of Service: 08/06/20 Interval History: seen and examined this AM denies any abodminal pain had a long conversation yesterday evening with him and his daughter in law (HCP) -- they had elected for DNR/DNI and were considering hospice. Also did not want dialysis should he requirement. Review of Systems General - no fevers or chills Cardiovascular - no chest pain Respiratory - no shortness of breath or cough Abdominal- no abdominal pain, nausea, vomiting, diarrhea Physical Exam Vital Signs: Vital Signs: Vital Signs Temp Pulse Resp BP Pulse Ox 08/06/20 11:27 97.8 F 88 20 107/58 L 96 08/06/20 07:35 98.6 F 89 18 134/69 97 08/06/20 03:00 96.7 F L 85 19 137/60 96 08/05/20 23:01 98.0 F 95 19 100/52 L 95 08/05/20 21:22 94 136/79 08/05/20 18:47 96.8 F 94 19 136/79 96 08/05/20 16:00 97.3 F 73 16 120/63 97 08/05/20 15:32 97.3 F 73 16 120/63 97 Body Mass Index 22.4 General - no acute distress, appears comfortable Cardiovascular - regular rate and rhythm, S1-S2 Lungs - normal respiratory effort, clear to auscultation bilaterally, no wheezing Abdomen - distended without rebound or guarding; +Fluid thrill; +BS Extremities - no edema bilaterally Neuro - awake and alert, no focal deficits Objective Data Current Medications Generic Name Dose Route Start Last Admin Trade Name Alexandrea PRN Reason Stop Dose Admin Acetaminophen 650 mg 08/05/20 14:40 08/06/20 00:13 Acetaminophen 325 Mg Tablet PO 650 mg Q6H PRN Administration Pain, Mild (Pain Scale 1-3) Heparin Sodium (Porcine) 5,000 unit 08/05/20 16:00 08/06/20 05:12 Heparin Sodium,Porcine 5,000 Unit/Ml Vial SUBCUT 5,000 unit Q12H NICKY Administration Sodium Bicarbonate 50 meq/ 1,000 mls @ 50 mls/hr 08/06/20 09:32 08/06/20 11:17 Dextrose IV 08/07/20 05:31 50 mls/hr .Q20H ONE Administration Insulin Human Lispro 0 unit 08/06/20 11:30 08/06/20 11:34 Insulin Lispro 100 Unit/Ml 3 Ml Vial SUBCUT 2 unit QIDACHS [facility] Administration Protocol Midodrine 2.5 mg 08/05/20 15:00 08/06/20 08:11 Midodrine Hcl 2.5 Mg Tablet PO Not Given TID NICKY Octreotide Acetate 100 mcg 08/05/20 15:00 08/06/20 06:34 Octreotide Acetate 100 Mcg/Ml Ampul SUBCUT 100 mcg Q8H [facility] Administration Pharmacy Consult 1 each 08/05/20 13:59 Consult Rx Perform Med Rec MISCELLANE ONCE PRN Consult order Sodium Chloride 3 ml 08/05/20 16:00 08/06/20 08:11 0.9 % Sodium Chloride Flush 3 Ml Syringe IVFLUSH 3 ml QSHIFT [facility] Administration Labs CBC & Chem 7: 08/06/20 06:01 08/06/20 06:01 Assessment and Plan (1) Acute kidney injury superimposed on CKD: Status: Acute Assessment and Plan: This is a 85 yo M with PMH of cirrhosis (cause unclear), DM, HTN, newly diagnosed HCC this month who presents with complaints of generalized weakness and falls. His ED work up is consistent with PHAN on CKD as well as possibility of lytic lesion (less likely) seen on CT scan. 1. PHAN on CKD SCr improved with treatment for HRS, but K increasing Will give 30 of kayexlate now, start low dose bicarb drip patient does not want dialysis -- hold off on consult nephrology 2. Generalized weakness multifactorial due to above + cancer 3. Cirrhosis / ascites / HCC no abdominal pain to suggest SBP monitor for now, although does have significant distension HCC -- family / patient considering transition to hospice. 4. ? lytic lesion seen on CT head mets less likely per radiology read d/w the HCP / patient -- do not want to under go MRI 5. DM hold PO meds diabetic diet ISS DNR/DNI DVT pptx, heparin
[2020-08-06] MEDS: Midodrine HCl 2.5 MG TABLET 5 MG PO ×2 (12:08→16:40)
[2020-08-06 14:02] LABS: Anion Gap 16 (12-20); Blood Urea Nitrogen 80 mg/dL (9-16); Calcium 8.8 mg/dL (8.4-10.2); Carbon Dioxide 19 mmol/L (22-29); Chloride 111 mmol/L (96-108); Creatinine Clr Calc Pharmacy 24.2; Estimated Glomerular Filt Rate 28; Glucose Random 186 mg/dL (60-115); Potassium 5.3 mmol/l (3.3-5.1); Sodium 141 mmol/L (135-145)
--- NOTE | 2020-08-06 15:28 | MHC.CM.PN ---
Addendum entered by Keyla Raygoza 08/07/20 15:59: PCP=Senthil Evans @ [facility] Original Note: computer tester completed with pts daughter in law/HCP, Celia Bullock ([phone]) who reports the pt lives with her and her and is independent with self care at baseline. She reports he uses a walker for ambulation and has no in home services. Celia reports the preference is for the pt to return home upon discharge. Possible VNA was discussed however, Celia would prefer to take pt to his PCP appt next week to determine their recommendations/options. IMM delivered current DC plan is home with no services family will transport
[2020-08-06 16:37] LABS: Glucose, Whole Blood 203 mg/dL (60-115)
[2020-08-06 20:54] LABS: Glucose, Whole Blood 162 mg/dL (60-115)
[2020-08-06] MEDS: Tamsulosin HCL 0.4 MG CAPSULE PO (20:57)
[2020-08-07] VITALS: BP 116/58; PULSE 97; RESP 18; TEMP 37; O2SAT 95
[2020-08-07] MEDS: Octreotide Acetate 100 MCG/ML AMPUL SUBCUT ×2 (02:50→07:51)
[2020-08-07] MEDS: 0.9 % Sodium Chloride Flush 3 ML SYRINGE IVFLUSH ×2 (02:52→07:52)
[2020-08-07 03:49] VITALS: BP 115/59; PULSE 91; RESP 18; TEMP 37; O2SAT 95
[2020-08-07] MEDS: Heparin Sodium,Porcine 5,000 UNIT/ML VIAL 5000 UNIT SUBCUT (05:21)
[2020-08-07 07:37] VITALS: BP 102/59; PULSE 93; RESP 20; TEMP 37; O2SAT 94
[2020-08-07 07:41] LABS: Glucose, Whole Blood 147 mg/dL (60-115)
[2020-08-07] MEDS: Midodrine HCl 2.5 MG TABLET 5 MG PO ×2 (07:50→13:33)
[2020-08-07 08:11] LABS: Anion Gap 17 (12-20); Blood Urea Nitrogen 74 mg/dL (9-16); Calcium 8.1 mg/dL (8.4-10.2); Carbon Dioxide 17 mmol/L (22-29); Chloride 112 mmol/L (96-108); Creatinine Clr Calc Pharmacy 30.1; Estimated Glomerular Filt Rate 36; Glucose Random 146 mg/dL (60-115); Potassium 5.4 mmol/l (3.3-5.1); Sodium 141 mmol/L (135-145)
[2020-08-07 12:00] VITALS: BP 122/64; PULSE 66; RESP 20; TEMP 36.1; O2SAT 92
[2020-08-07 12:00] LABS: Glucose, Whole Blood 188 mg/dL (60-115)
--- NOTE | 2020-08-07 12:28 | W.MHC.ACPN ---
Advanced Care Planning Note Advanced Care Planning Note Discussed with: patient and family member(s) (Daughter in law (Celia, HCP); Son (Herbie)) Time spent (in minutes): 25 Narrative: Met with the patient, patient's [id number] (HCP) and patients son bedside to have a goals of care discussion. 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 He has a newly (within the last few weeks) diagnosed HCC. We talked about the patients wishes and potential treatment options for both his PHAN and cancer as well as alternative. For his cancer -- he was to have his initial meeting with IR tomorrow 08/08/2020 for liver directed therapy. However, given how quickly he has progressed the patient and family have elected to forgo this option and take him home with hospice services. I have informed them to discuss further care with patients oncologist Dr. Lugo to see if other non-invasive palliative options are available. A MOLST form was completed. Total time spent: 25 minutes Problems Discussed (1) Hepatocellular carcinoma:
--- NOTE | 2020-08-07 13:02 | PM.DS ---
DS: Providers Provider Date of admission: 08/05/20 14:10 Primary care physician: Unknown Physician DS: Diagnosis Discharge Diagnosis (1) Acute kidney injury superimposed on CKD: Status: Acute (2) Hepatocellular carcinoma: Status: Acute (3) Severe protein-calorie malnutrition: Status: Acute (4) Liver cirrhosis: Status: Acute (5) Ascites: Status: Acute (6) HTN (hypertension): Status: Acute (7) Diabetes: Status: Acute DS: Summary Hospital Course Hospital Course: HPI: This is a 85-year-old male with a past medical history of diabetes, hypertension and a recently diagnosed hepatocellular carcinoma who presents to the hospital with complaints of generalized weakness and several falls over the last about 1 week. Patient is very hard of hearing and as such history is largely obtained from his daughter in-law Celia over the telephone. She reports that this week he has had some mechanical falls particularly at nighttime. There has been no reports of loss of consciousness.No reports of chest pain or shortness of breath. She does endorse that he has become somewhat confused during evening time. Patient is seen and examined in the emergency room. Although hard of hearing, he is able to answer questions. He denies any pain. Chart review reveals that the patient was recently worked up for his liver lesions and it appears that the diagnosis is hepatocellular carcinoma. It appears that he has a follow-up with Interventional Radiology on Saturday08/08/2020. While in the ED, it was noted that the patient had mild hyperkalemia and acute on chronic kidney disease. He was given 2 L of intravenous fluids with a repeat chemistry showing similar values and as such admission was requested. Hospital Course Patient was started on treatment for hepatorenal syndrome with IV albumin, Sandostatin and midodrine. With these measures, his serum creatinine improved. For his hyperkalemia he was treated Kayexalate with improvement in his potassium as well. Daily discussions were held with him and his family, particularly his daughter in-law Celia who is the healthcare proxy and ultimately due to his progressive overall decline they elected to pursue home with hospice services. Time Spent with Patient Time attestation: Total time spent providing and/or coordinating discharge services: Physical Exam Vital Signs: Vital Signs: Vital Signs Temp Pulse Resp BP Pulse Ox 08/07/20 12:00 97 F 66 20 122/64 92 08/07/20 07:37 98.6 F 93 20 102/59 L 94 08/07/20 03:49 98.6 F 91 18 115/59 L 95 08/07/20 00:00 98.6 F 97 18 116/58 L 95 08/06/20 20:00 97.5 F 90 19 108/60 95 08/06/20 16:40 90 108/60 08/06/20 16:00 97.5 F 90 20 108/60 95 Body Mass Index 22.4 DS: Data Data Completed and Pending Completed studies during hospitalization [Text1]: Procedures Drainage of Peritoneal Cavity, Percutaneous Approach (07/15/20) Labs on day of discharge: Labs from last 24 hours 08/07/20 08/07/20 08/07/20 11:57 07:37 06:15 Sodium 141 Potassium 5.4 H Chloride 112 H Carbon Dioxide 17 L Anion Gap 17 BUN 74 H Creatinine 1.81 H Estim Creat Clear Calc 30.1 Estimated GFR 36 POC Glucose 188 H 147 H Random Glucose 146 H Calcium 8.1 L 08/06/20 08/06/20 08/06/20 20:50 16:32 13:08 Sodium 141 Potassium 5.3 H Chloride 111 H Carbon Dioxide 19 L Anion Gap 16 BUN 80 H* Creatinine 2.25 H Estim Creat Clear Calc 24.2 Estimated GFR 28 POC Glucose 162 H 203 H Random Glucose 186 H Calcium 8.8 Discharge Plan Discharge Patient Disposition: Hospice - Home Referrals: Physician,Unknown [Primary Care Provider] - Discharge Medications: New morphine concentrate 100 mg/5 mL (20 mg/mL) solution 5 mg PO Q6H PRN (Reason: pain / shortness of breath) Qty: 30 RF: 0 Continued tamsulosin 0.4 mg capsule 0.4 mg PO BEDTIME RF: 0 metformin 1,000 mg tablet 1,000 mg PO BIDWM RF: 0 Trulicity 1.5 mg/0.5 mL pen injector 0.5 ml subcut FR@09 RF: 0 pioglitazone 45 mg tablet 45 mg PO DAILY RF: 0 Discontinued atorvastatin 20 mg tablet 20 mg PO DAILY RF: 0 amlodipine 5 mg tablet 5 mg PO DAILY RF: 0 spironolactone [Aldactone] 25 mg tablet 25 mg PO DAILY Qty: 30 RF: 0 No Action (DME) Accu-Chek Guide test strips Strip 1 strip MISCELLANEOUS TID RF: 0 (DME) lancets [Accu-Chek Fastclix Lancet Drum] Misc 1 ea topical BID RF: 0 Discharge Orders: Discharge Order (Routine); Ordered 08/07/20 Ordered By: Chip Epstein Diet: advance to your usual diet Activity on Discharge: As tolerated Visit Report Forms: Patient Portal Discharge page Care Plan Goals: To be at home and spend time with family Health Concerns: Cancer Plan of Treatment: Hospice Care at home
[2020-08-07] MEDS: Acetaminophen 325 MG TABLET 650 MG PO (13:33)
[2020-08-07] MEDS: Nystatin Cream 15 GM TUBE 1 APPL TOPICAL (13:34)
--- NOTE | 2020-08-07 14:23 | MHC.CM.PN ---
CM met with pts son and daughter in law this morning. They report being interested in taking pt home on hospice and they requested a referral be made to [facility]. Referral was placed and hospice nurse is currently meeting with family to coordinate services
--- NOTE | 2020-08-07 15:58 | MHC.CM.PN ---
PT DISCHARGED HOME TODAY WITH [facility]. PT TRANSPORTED VIA BLS AND HOSPICE NURSE WILL MEET PT AND FAMILY AT THEIR HOME LATER TODAY.
== END 2020-08-07 15:46 | disposition hospice, home (50) | DRG 682 ==
LOC: HO.ED 13:04 → HO.IMC 14:30
PROVIDERS: Admitting Provider Family Medicine; Emergency Provider Emergency Medicine; Visit Provider Family Medicine
DX: I12.9 Hypertensive chronic kidney disease with stage 1 through stage 4 chronic kidney disease, or unspecified chronic kidney disease (principal); E43 Unspecified severe protein-calorie malnutrition; N17.9 Acute kidney failure, unspecified; C22.0 Liver cell carcinoma; R18.8 Other ascites; M19.90 Unspecified osteoarthritis, unspecified site; E78.00 Pure hypercholesterolemia, unspecified; E87.5 Hyperkalemia; R29.6 Repeated falls; N18.9 Chronic kidney disease, unspecified; E11.22 Type 2 diabetes mellitus with diabetic chronic kidney disease; K74.60 Unspecified cirrhosis of liver; Z68.22 Body mass index [BMI] 22.0-22.9, adult; Z91.81 History of falling; Z20.828 Contact with and (suspected) exposure to other viral communicable diseases; Z79.899 Other long term (current) drug therapy; Z66 Do not resuscitate
CPT/HCPCS: 36415; 70450; 80048; 80076; 81003; 82947; 83935; 84300; 85025; 87635; 93005; 96361; 96374; 99285; J2354; P9047

== ENCOUNTER → 2024-06-09 14:01 | Outpatient (RCR) | payer MEDICARE, SELFPAY ==
[2020-07-21 10:48] VITALS: BP 104/55; PULSE 106; RESP 18; TEMP 36.6; BMI 22.8
--- NOTE | 2020-07-21 10:56 | PM.HEMONCCN ---
Subjective - Subjective Chief complaint: LIVER NODULES Patient: known to practice within the last 3 years Medical Summary: DIAGNOSIS: LIVER LESIONS. HPI - Consult Narrative Reason for consult: LIVER LESIONS. Narrative: This is a pleasant 85 year old gentleman, who was seen in house back on July 15. he had presented with abdominal distension of her week's duration. He denied abdominal pain nausea vomiting heartburn indigestion. He did admit to having had diarrhea off and on. He had a poor appetite and lost about 20 lbs. His LFTs: Bili 2.6/AP 186/AST 152/ALT 129/. BUN 33/SUPERVIS[employer]ET[employer] 1.42. CT scan of the abdomen revealed: Large mass 10 cm in the central liver, ascites and cirrhosis. He underwent a Diagnostic and therapeutic paracentesis. The cytology came back negative. AFP: 3.8. MRI of the abdomen from July 15: 1. Cirrhotic liver with evidence of portal venous hypertension as evidenced by large volume ascites and small periportal varices. There are 3 superimposed hepatic masses, largest of which is seen nearly completely replacing hepatic segment 8. In the setting of liver cirrhosis, the imaging characteristics of these masses are suspicious, though not entirely diagnostic for hepatocellular carcinoma. Diagnostic confidence is low given the suboptimal scan obtained. 2. There is nonvisualization of the right portal vein, at least in part related to attenuation by extrinsic mass effect by the large central hepatic mass. Thrombosis (bland versus tumor thrombus) of the right portal vein may also be possible. 3. Mild intrahepatic ductal dilatation in the right and left lobes of the liver due to mass effect by the liver masses on the central intrahepatic biliary tree. 4. Poorly characterized cystic masses in the pancreatic body and tail. 5. Multiple renal masses, most consistent with cysts. Review of Systems - Constitutional Reports system reviewed and no additional complaints, except as documented - Eyes Reports system reviewed and no additional complaints, except as documented - ENT Reports system reviewed and no additional complaints, except as documented - Cardiovascular Reports system reviewed and no additional complaints, except as documented - Respiratory Reports no additional respiratory complaints - Gastrointestinal Reports diarrhea - Genitourinary Genitourinary: Reports no additional male genitourinary complaints - Musculoskeletal Reports system reviewed and no additional complaints, except as documented - Integumentary/Breasts Skin/Breast: Reports no additional skin complaints - Endocrine Reports as per HPI - Hematologic/Lymphatic Reports system reviewed and no additional complaints, except as documented PMF Medical History: Medical History (Last Reviewed 07/19/20 @ 15:26 by Marie Lugo MD) Arthritis Cataract Diabetes HTN (hypertension) Hypercholesteremia Liver mass Surgical History: Surgical History (Last Reviewed 07/15/20 @ 03:51 by Ant Castro MD) H/O hernia repair Home Medications and Allergies Home Medications Medication Instructions Recorded Confirmed Type Accu-Chek Guide test strips 07/15/20 07/21/20 History Trulicity 0.5 ml SUBCUT QWEEK 07/15/20 07/21/20 History amlodipine 5 mg PO DAILY 07/15/20 07/21/20 History atorvastatin 20 mg PO DAILY 07/15/20 07/21/20 History lancets [Accu-Chek Fastclix Lancet 07/15/20 07/21/20 History Drum] metformin 1,000 mg PO BID 07/15/20 07/21/20 History tamsulosin 0.4 mg PO BEDTIME 07/15/20 07/21/20 History pioglitazone 1 tab PO DAILY 07/21/20 07/21/20 History pioglitazone 45 mg PO DAILY 07/21/20 07/21/20 History Allergies Allergy/AdvReac Type Severity Reaction Status Date / Time No Known Allergies Allergy Unverified 06/30/20 15:01 Physical Exam - Constitutional Present: mild distress - Routine HEENT Exam Head: Present: normal inspection ENT: Present: mucous membranes moist - Routine Neck Exam Present: supple - Routine Respiratory Exam Present: CTAB - Routine Cardiovascular Exam Cardiovascular: Present: RRR, S1, S2 - Routine Abdominal Exam Present: distended, soft - Routine Rectal Exam Patient deferred: digital exam - Routine Extremities Exam Present: nontender - Routine Skin Exam Present: intact - Routine Neurological Exam Present: alert, oriented X3 - Routine Psychiatric Exam Present: depressed Hem/Onc Consult Result - Labs CBC & Chem 7: 07/21/20 12:05 07/21/20 12:05 Assessment and Plan (1) Liver mass Status: Acute This is a pleasant 85-year-old gentleman who was seen in house back on July 15 when he presented with abdominal distension. He underwent paracentesis with removal of 3.5 L of fluid. Cytology of that came back negative. He was noted to have large liver mass on the CT scan. MRI of the abdomen was done and revealed: 3 large masses in the liver largest measuring 10.6 x 9.5 x 11.6 cm appearing heterogenously iso intense, nearly completely replacing hepatic segment 8. these are suspicious for hepatocellular carcinoma. There is nonvisualization of the right portal vein at least in part related it 10 UA guajardo of bike extrinsic mass effect by the large central hepatic mass. thrombosis of the right portal vein may also be possible. Mild intrahepatic ductal dilatation in the right and left lobes of the liver due to mass effect by the liver masses on the central intrahepatic biliary tree. Poorly characterized cystic masses in the pancreatic body and tail. Multiple renal masses most consistent with cysts. PLAN: Will proceed with a biopsy of one of the liver lesions to confirm the diagnosis. I discuss the case with Dr. Carmichael. She felt it was doable. Will proceed with the paracentesis and do the biopsy right after. Will make further plans in light of the above biopsy results. In the meantime I have requested Dr. Cabello's input. He will return in a couple of weeks for a follow up visit. Thanks, CC: SSS (2) Liver mass Status: Acute
[2020-07-21 12:20] LABS: Basophils Percent Auto 0.5 % (0-2); Hematocrit 36.8 % (42-52); Hemoglobin 12.3 g/dl (14.0-18.0); Imm Gran Abs Auto 0.05 X10*3/uL (0.00-0.03); Imm Gran Pct Auto 0.6 % (0.0-0.4); Lymphocytes Absolute Auto 0.6 X10*3/uL (1.2-4.9); Lymphocytes Percent Auto 7.4 % (20-40); MANUAL DIFF FLAG SCAN; Mean Corpuscular HGB Conc 33.4 g/dl (31.0-36.0); Mean Corpuscular Hemoglobin 28.5 pg (27.0-33.0); Mean Corpuscular Volume 85.2 fL (80-98); Monocytes Absolute Auto 0.7 X10*3/uL (0.1-1.2); Monocytes Percent Auto 7.9 % (2-11); Neutrophils Absolute Auto 7.1 X10*3/uL (2.0-8.3); Neutrophils Percent Auto 83.6 % (45-73); Platelet Count 338 X10*3/uL (160-400); Red Blood Count 4.32 X10*6/uL (4.60-5.80); SCAN SMEAR FLAG 1; White Blood Count 8.4 X10*3/uL (4.8-10.8)
[2020-07-21 12:28] LABS: INTERNATIONAL NORM RATIO 1.4 (0.9-1.1); Prothrombin Time 16.5 SEC (10.8-13.0)
[2020-07-21 12:50] LABS: Alanine Aminotransferase 105 U/L (0-40); Alkaline Phosphatase 705 U/L (39-117); Anion Gap 16 (12-20); Aspartate Amino Transferase 132 U/L (5-37); Bilirubin Total 2.5 mg/dL (0.0-1.0); Blood Urea Nitrogen 37 mg/dL (9-16); Calcium 8.5 mg/dL (8.4-10.2); Carbon Dioxide 18 mmol/L (22-29); Chloride 108 mmol/L (96-108); Creatinine Clr Calc Pharmacy 35.9; Estimated Glomerular Filt Rate 41; Glucose Random 203 mg/dL (60-115); Potassium 4.9 mmol/l (3.3-5.1); Sodium 137 mmol/L (135-145); Total Protein 6.1 g/dL (6.5-8.0)
[2020-07-21 12:57] LABS: SLIDE REVIEW VERIFIED
--- NOTE | 2020-07-22 16:28 | MHC.HEMONC ---
Pt scheduled for ultrasound guided paracentesis followed by biopsy of largest liver lesion. Order faxed to [facility]. Pt notified and instructed to remain NPO after midnight and hold any blood thinners. Spoke to Celia (daughter in law) who verbalizes understanding.
[2020-08-04 09:40] VITALS: BP 113/55; PULSE 88; RESP 18; TEMP 36.1
[2020-08-04 09:45] VITALS: BMI 21.2
[2020-08-04 10:39] LABS: Basophils Percent Auto 0.2 % (0-2); Hematocrit 36.4 % (42-52); Hemoglobin 12.6 g/dl (14.0-18.0); Imm Gran Abs Auto 0.04 X10*3/uL (0.00-0.03); Imm Gran Pct Auto 0.5 % (0.0-0.4); Lymphocytes Absolute Auto 0.6 X10*3/uL (1.2-4.9); Lymphocytes Percent Auto 6.9 % (20-40); MANUAL DIFF FLAG SCAN; Mean Corpuscular HGB Conc 34.6 g/dl (31.0-36.0); Mean Corpuscular Hemoglobin 28.5 pg (27.0-33.0); Mean Corpuscular Volume 82.4 fL (80-98); Mean Platelet Volume 9.8 fL (9.4-12.4); Monocytes Absolute Auto 0.6 X10*3/uL (0.1-1.2); Monocytes Percent Auto 7.1 % (2-11); Neutrophils Absolute Auto 7.4 X10*3/uL (2.0-8.3); Neutrophils Percent Auto 85.3 % (45-73); Platelet Count 341 X10*3/uL (160-400); Red Blood Count 4.42 X10*6/uL (4.60-5.80); Red Cell Distribution Width 19.9 % (11.0-16.0); SCAN SMEAR FLAG 1; White Blood Count 8.7 X10*3/uL (4.8-10.8)
[2020-08-04 10:56] LABS: Alanine Aminotransferase 130 U/L (0-40); Albumin Level 2.7 g/dL (3.5-5.0); Alkaline Phosphatase 820 U/L (39-117); Anion Gap 17 (12-20); Aspartate Amino Transferase 170 U/L (5-37); Bilirubin Total 3.2 mg/dL (0.0-1.0); Blood Urea Nitrogen 86 mg/dL (9-16); Calcium 8.8 mg/dL (8.4-10.2); Carbon Dioxide 17 mmol/L (22-29); Chloride 106 mmol/L (96-108); Creatinine Clr Calc Pharmacy 22.7; Estimated Glomerular Filt Rate 26; Glucose Random 207 mg/dL (60-115); Potassium 5.7 mmol/l (3.3-5.1); Sodium 134 mmol/L (135-145)
[2020-08-04 11:15] LABS: SLIDE REVIEW VERIFIED
--- NOTE | 2020-08-04 12:12 | MHC.HEMONC ---
Pathology faxed to Dr. Linares at [phone], pt has established appt 08/08/20 Follow up in one month with Dr. Lugo.
--- NOTE | 2020-08-04 16:15 | MHC.HEMONC ---
Bun/Creat 86/2.40- Dr. Lugo aware, no new orders at this time.
--- NOTE | 2020-08-05 17:28 | PM.HEMONCPN ---
Medical Summary - Medical Summary Chief complaint: F/U for HCC. Medical Summary: DIAGNOSIS: LIVER LESIONS. HCC. Interval History Interval history: This is a pleasant 85 year old gentleman, who was seen in house back on July 15. he had presented with abdominal distension of her week's duration. He denied abdominal pain nausea vomiting heartburn indigestion. He did admit to having had diarrhea off and on. He had a poor appetite and lost about 20 lbs. His LFTs: Bili 2.6/AP 186/AST 152/ALT 129/. BUN 33/LEATHER PATCHER 1.42. CT scan of the abdomen revealed: Large mass 10 cm in the central liver, ascites and cirrhosis. He underwent a Diagnostic and therapeutic paracentesis. The cytology came back negative. AFP: 3.8. MRI of the abdomen from July 15: 1. Cirrhotic liver with evidence of portal venous hypertension as evidenced by large volume ascites and small periportal varices. There are 3 superimposed hepatic masses, largest of which is seen nearly completely replacing hepatic segment 8. In the setting of liver cirrhosis, the imaging characteristics of these masses are suspicious, though not entirely diagnostic for hepatocellular carcinoma. Diagnostic confidence is low given the suboptimal scan obtained. 2. There is nonvisualization of the right portal vein, at least in part related to attenuation by extrinsic mass effect by the large central hepatic mass. Thrombosis (bland versus tumor thrombus) of the right portal vein may also be possible. 3. Mild intrahepatic ductal dilatation in the right and left lobes of the liver due to mass effect by the liver masses on the central intrahepatic biliary tree. 4. Poorly characterized cystic masses in the pancreatic body and tail. 5. Multiple renal masses, most consistent with cysts. He does not feel well at all. His belly is distended. He doesn't have an apetite.Though he did eat some eclairs, yesterday. He denies fever nor chills. No BUCK but does feel dizzy at times. No CP/SOB. He appears rather depressed. Rest of the ROS is unremarkable. . Review of Systems - Constitutional Reports anorexia, Reports fatigue, Reports lack of energy, Reports malaise, Reports weakness, Reports weight loss - Eyes Denies blurry vision - ENT Reports system reviewed and no additional complaints, except as documented - Cardiovascular Denies chest pain at rest - Respiratory Denies cough - Gastrointestinal Reports abdominal pain, Reports bloating, Reports change in bowel habits, Reports diarrhea, Reports nausea - Musculoskeletal Denies back pain - Integumentary/Breasts Skin/Breast: Denies bleeding lesions - Psychiatric Reports anxiety, Reports depression - Hematologic/Lymphatic Reports easy bruising, Denies easy bleeding - Allergic/Immunologic Denies GI upset with certain foods PMFSH Medical History: Medical History (Last Updated 08/07/20 @ 13:03 by Chip Epstein MD) Arthritis Cataract Diabetes Hepatocellular carcinoma HTN (hypertension) Hypercholesteremia Liver mass Severe protein-calorie malnutrition Surgical History: Surgical History (Last Reviewed 08/05/20 @ 07:11 by Breanna Marquez MD) H/O hernia repair Smoking status: Never smoker Home Medications and Allergies Home Medications Medication Instructions Recorded Confirmed Type Accu-Chek Guide test strips 07/15/20 07/21/20 History Trulicity 0.5 ml SUBCUT FR@09 07/15/20 08/05/20 History lancets [Accu-Chek Fastclix Lancet 07/15/20 07/21/20 History Drum] metformin 1,000 mg PO BIDWM 07/15/20 08/05/20 History tamsulosin 0.4 mg PO BEDTIME 07/15/20 08/05/20 History pioglitazone 45 mg PO DAILY 07/21/20 08/05/20 History Allergies Allergy/AdvReac Type Severity Reaction Status Date / Time No Known Allergies Allergy Verified 07/26/20 10:00 Exam Vital signs: Vital Signs Temp 97.0 F 08/04/20 09:40 Pulse 88 08/04/20 09:40 Resp 18 08/04/20 09:40 BP 113/55 L 08/04/20 09:40 Intake & Output 08/04/20 08/05/20 08/05/20 18:59 06:59 18:59 Other: Weight 69.1 kg Weight 69.1 kg Body Mass Index 21.2 - Constitutional Present: mild distress - Routine HEENT Exam Head: Present: normal inspection ENT: Present: mucous membranes moist - Routine Neck Exam Absent: lymphadenopathy - Routine Respiratory Exam Present: CTAB - Routine Cardiovascular Exam Cardiovascular: Present: RRR, S1, S2 - Routine Abdominal Exam Present: diminished bowel sounds, distended, firm, nontender - Routine Rectal Exam Patient deferred: digital exam - Routine Extremities Exam Present: nontender - Routine Skin Exam Present: intact - Routine Neurological Exam Present: alert, oriented X3. Absent: asterixis - Detailed Neurological Exam: Coma Scale Eye Opening: Spontaneous (4) Verbal Response: Oriented (5) - Routine Psychiatric Exam Present: depressed Data - Labs CBC & Chem 7: 08/04/20 09:20 08/04/20 09:20 Progress Note: A/P (1) Liver mass Status: Acute Assessment and plan: This is an unfortunate 85 year old man with recent diagnosis of HCC. He has ascites, however he doesn't feel uncomfortable from it. He doesn't want it to be drained right now. He has a poor apetite, has been trying supplements. PLAN: He has an appointment with IR Dr. Cabello at [facility] on Saturday, to consider Liver directed therapy. Alternatively one can consider nexavaar, for palliation. He will return in a couple of weeks for a follow up. They will call if he needs to have a therapeutic paracentesis. Thanks, CC: Dr. Cabello. (2) Liver mass Status: Acute - Time Spent With Patient Total time spent is greater than 50% in coordination of care (as documented) at patient's floor/unit and/or counseling patient: 15 - 24 minutes
[2020-08-08 16:32] LABS: Alpha Fetoprotein 6.3 ng/mL (<6.1)
== END | disposition home or self-care (01) ==
LOC: HO.ONC 07-21 10:34
PROVIDERS: Visit Provider Internal Medicine Medical Oncology
DX: C22.0 Liver cell carcinoma (principal); R18.8 Other ascites
CPT/HCPCS: 36415; 80053; 82105; 85025; 85610; 99214; Q3014